=== PATIENT | female | born 1940 | race Caucasian/White ===

== ENCOUNTER 2016-09-25 21:45 | Inpatient (IN) | payer OTHER ==
[2016-09-25] MEDS ORDERED: SOLU-MEDROL ONE (21:48)
[2016-09-25] MEDS ORDERED: AMIDATE ONE (21:48)
[2016-09-25] MEDS ORDERED: QUELICIN ONE (21:48)
[2016-09-25] MEDS ORDERED: MAGNESIUM SULFATE 1 GM/D5W 100 ML IV ONE (21:52)
[2016-09-25] MEDS ORDERED: NITROGLYCERIN TOP ONE (21:54)
[2016-09-25] MEDS ORDERED: DUONEB (A & A) INH ONE (21:54)
[2016-09-25] MEDS ORDERED: LASIX IV ONE (21:56)
[2016-09-25 21:57] LABS: ALLEN TEST YES; BE -3.6 mmoll (-3.0-3.0); BLOOD TYPE ARTERIAL; DRAW SITE L RADIAL; O2(CT) 15.9 mL/dL (15.0-23.0); PO2(98.6) 93 mmHg (60-100); SAMPLE BLOOD; SAO2 96.9 % (95.0-100.0); SRATE 20 BPM; THB 12.9 g/dL (11.5-17.4)
--- NOTE | 2016-09-25 21:58 | PROVIDER DOCUMENTATION ---
HPI-Respiratory General - General Chief Complaint: Shortness of Breath Stated Complaint: RESP DISTRESS Time Seen by Provider: 09/25/16 21:51 Source: EMS Allergies/Adverse Reactions: Patient Allergies Allergy/AdvReac Type Severity Reaction Status Date / Time No Known Allergies Allergy Verified 09/25/16 22:56 Home Medications: Albuterol Sulfate Inhaler [Ventolin Hfa] 2 puff INH Q4H PRN PRN 05/18/16 Aspirin 81 tab PO DAILY 05/18/16 Atorvastatin Calcium [Lipitor] 40 mg PO DAILY 05/18/16 Fluticasone/Salmeterol [Advair 500-50 Diskus] 1 puff INH BID 05/18/16 Gabapentin 400 mg PO TID 05/18/16 Isosorbide Mononitrate [Isosorbide Mononitrate ER] 15 mg PO DAILY 05/18/16 Lisinopril 5 mg PO DAILY 05/18/16 Ropinirole HCl [Requip] 3 mg PO QHS 05/18/16 Temazepam 15 mg PO QHS 05/18/16 - History of Present Illness-Resp Nature of Presenting Problem: 75 y/o f presents to the ed with respiratory failure. pt was brought in by ems. per ems when they arrived at the pts residence she was taking an albuterol treatment. pt was in respiratory distress. upon arrival pt was struggling to breath and had extreme hypertension. pt has ill appearance. Quality of Pain: reports: tightness Severity in ED: reports: moderate Onset/Duration: reports: 1-3 hours ago Timing: reports: still present Cough Quality/Degree: reports: no cough Current Respiratory Medication Therapy: Initiated albuterol/atrovent inhale Modifying Factors: improves with: albuterol nebulizer Similar Symptoms Previously?: No Recently seen or treated by another doctor?: No Review of Systems - Adult - REVIEW OF SYSTEMS - ADULT ROS:: unobtainable per condition Constitutional: reports: no symptoms reported Eyes: reports: no symptoms reported Ears, Nose, Mouth & Throat: reports: no symptoms reported Cardiovascular: reports: no symptoms reported Respiratory: reports: no symptoms reported Gastrointestinal: reports: no symptoms reported Genitourinary: reports: no symptoms reported Musculoskeletal: reports: no symptoms reported Integumentary: reports: no symptoms reported Neurological: reports: no symptoms reported Psychiatric: reports: no symptoms reported Endocrine: reports: no symptoms reported Hematologic/Lymphatic: reports: no symptoms reported Allergic/Immunologic: reports: no symptoms reported All Other Systems: Reviewed and Negative Past History - Adult - PAST MEDICAL HISTORY-ADULT Review of Records: reports: Old Records Reviewed, Nursing Assessment Review, Medications Reviewed Cardiovascular: reports: pacemaker Respiratory: reports: COPD Musculoskeletal: reports: arthritis - PRIOR SURGERIES/PROCEDURES Surgical/Procedure History: reports: reviewed, not pertinent - IMMUNIZATION STATUS Childhood Immunizations: See Nurse Assessment Flu Vaccine: See Nurse Assessment - FAMILY HISTORY Family History: reviewed, not pertinent - SOCIAL HISTORY Smoking: cigarettes, less than 1 pack/day Provider spent 3-5 mins advising pt. on dangers of tobacco.: Discussed manners to quit use, and f/u contacts for add'l counseling. Physical Exam-General - PHYSICAL EXAM-ADULT Initial Vital Signs Reviewed: Yes - CONSTITUTIONAL General Appearance: severe distress - EYES Eyes: PERRL/EOMI, pink conjunctivae, fundi clear, no AV nicking - HEAD, EARS, NOSE, MOUTH & THROAT HENMT: normocephalic/atraumatic, moist mucous membranes, normal ENT inspection - RESPIRATORY Respiratory: chest non-tender, respiratory distress, accessory muscle use, wheezing - CARDIOVASCULAR Cardiovascular: normal peripheral pulses, regular rate, rhythm - GASTROINTESTINAL (ABDOMEN) Abdominal Exam: normal bowel sounds, non tender, soft - LYMPHATIC Lymphatic: no adenopathy - MUSCULOSKELETAL Back Exam: normal inspection - SKIN Integumentary: normal color, normal turgor, warm/dry - PSYCHIATRIC Psych/Mental Status: disheveled Progress - PLAN OF CARE/RESULTS Progress/Plan/Lab Results: Dr. Ricks discussed intubation with pt daughter and initially the daughter did not want to intubate but changed her mind. plan of care: labs, imaging,admit as inpatient Laboratory Tests 09/25/16 09/25/16 09/25/16 21:50 21:50 21:50 WBC 13.98 H RBC 3.93 L Hgb 12.5 Hct 38.7 MCV 98.5 MCH 31.8 H MCHC 32.3 L RDW Std Deviation 14.0 Plt Count 263 MPV 10.9 H Neut % (Auto) 52.9 Lymph % (Auto) 37.7 Ida % (Auto) 5.8 Eos % (Auto) 3.4 Baso % (Auto) 0.2 Neut # (Auto) 7.40 H Lymph # (Auto) 5.27 H Ida # (Auto) 0.81 H Eos # (Auto) 0.47 Baso # (Auto) 0.03 PT INR PTT (Actin FS) Specimen Type ARTERIAL Sample Site L RADIAL pH 7.05 L* pCO2 107 H* pO2 93 HCO3 21.9 Base Excess -3.6 L Oxyhemoglobin 87.2 L* ABG O2 Sat (Calculated) 15.9 ABG O2 Saturation 96.9 ABG Carboxyhemoglobin 9.00 H* ABG Methemoglobin 1.0 Robert Test YES A-a O2 Difference 486.0 Total Hemoglobin 12.9 Lactate 2.20 Blood Gas Modality BI PAP Spontaneous Rate 20 FiO2 % 100.0 Inspiratory BiPAP 12.0 Expiratory BiPAP 5.0 Sodium 134 L Potassium 4.4 Chloride 93 L Carbon Dioxide 27 Anion Gap 14 BUN 22 Creatinine 1.5 H Estimated GFR/1.73 m2 34 BUN/Creatinine Ratio 15 Glucose 196 H Calculated Osmolality 277 Calcium 9.1 Total Bilirubin 0.21 AST 87 H ALT 72 H Alkaline Phosphatase 158 H Creatine Kinase 207 H Creatine Kinase Index 2.9 H CK-MB (CK-2) 6.02 H Troponin T [id number]-K-Onpxgufxqvq Pept Total Protein 7.0 Albumin 4.2 Globulin 2.8 Albumin/Globulin Ratio 1.5 09/25/16 09/25/16 09/25/16 21:50 21:50 21:50 WBC RBC Hgb Hct MCV MCH MCHC RDW Std Deviation Plt Count MPV Neut % (Auto) Lymph % (Auto) Ida % (Auto) Eos % (Auto) Baso % (Auto) Neut # (Auto) Lymph # (Auto) Ida # (Auto) Eos # (Auto) Baso # (Auto) PT 9.3 INR 0.88 PTT (Actin FS) 20.1 L Specimen Type Sample Site pH pCO2 pO2 HCO3 Base Excess Oxyhemoglobin ABG O2 Sat (Calculated) ABG O2 Saturation ABG Carboxyhemoglobin ABG Methemoglobin Robert Test A-a O2 Difference Total Hemoglobin Lactate Blood Gas Modality Spontaneous Rate FiO2 % Inspiratory BiPAP Expiratory BiPAP Sodium Potassium Chloride Carbon Dioxide Anion Gap BUN Creatinine Estimated GFR/1.73 m2 BUN/Creatinine Ratio Glucose Calculated Osmolality Calcium Total Bilirubin AST ALT Alkaline Phosphatase Creatine Kinase Creatine Kinase Index CK-MB (CK-2) Troponin T 0.754 H* Wcj-X-Chxrbexdyqa Pept 6199 H Total Protein Albumin Globulin Albumin/Globulin Ratio 09/25/16 23:00 WBC RBC Hgb Hct MCV MCH MCHC RDW Std Deviation Plt Count MPV Neut % (Auto) Lymph % (Auto) Ida % (Auto) Eos % (Auto) Baso % (Auto) Neut # (Auto) Lymph # (Auto) Ida # (Auto) Eos # (Auto) Baso # (Auto) PT INR PTT (Actin FS) Specimen Type ARTERIAL Sample Site R BRACHIAL pH 7.28 L pCO2 60 H* pO2 214 H HCO3 25.0 Base Excess 0.3 Oxyhemoglobin 91.7 L ABG O2 Sat (Calculated) 16.2 ABG O2 Saturation 99.5 ABG Carboxyhemoglobin 6.20 H* ABG Methemoglobin 1.6 H Robert Test YES A-a O2 Difference 424.0 Total Hemoglobin 12.2 Lactate 0.50 Blood Gas Modality BI PAP Spontaneous Rate 20 FiO2 % 100.0 Inspiratory BiPAP 18.0 Expiratory BiPAP 6.0 Sodium Potassium Chloride Carbon Dioxide Anion Gap BUN Creatinine Estimated GFR/1.73 m2 BUN/Creatinine Ratio Glucose Calculated Osmolality Calcium Total Bilirubin AST ALT Alkaline Phosphatase Creatine Kinase Creatine Kinase Index CK-MB (CK-2) Troponin T Apk-A-Weubasimhuq Pept Total Protein Albumin Globulin Albumin/Globulin Ratio Orders Category Date Time Status Cardiac Monitoring DIRECTED Care 09/25/16 21:53 Active FSBS/Accucheck Result NOW Care 09/25/16 21:53 Active Saline Loc NOW Care 09/25/16 21:53 Active CHEST-PORTABLE [RAD] Stat Exams 09/25/16 21:50 Taken ABG [RESP] Routine Lab 09/25/16 21:50 Completed ABG [RESP] Routine Lab 09/25/16 23:00 Completed CBC WITH ELECTRONIC DIFF [HEME] Stat Lab 09/25/16 21:50 Completed CK PROFILE [SP CHEM] Stat Lab 09/25/16 21:50 Completed COMPREHENSIVE METABOLIC PANEL [CHEM] Stat Lab 09/25/16 21:50 Completed PRO B-NATRIURETIC PEPTIDE Stat Lab 09/25/16 21:50 Completed PROTIME WITH INR [COAG] Stat Lab 09/25/16 21:50 Completed PTT [COAG] Stat Lab 09/25/16 21:50 Completed TROPONIN T Stat Lab 09/25/16 21:50 Completed Albuterol 2.5MG/Ipratrop 0.5MG [Duoneb (A & A)] Med 09/25/16 21:54 Discontinued 3 ml INH NOW ONE Etomidate [Amidate] Med 09/25/16 21:48 Discontinued 40 mg .ROUTE .STK-MED ONE Furosemide [Lasix] Med 09/25/16 21:56 Discontinued 60 mg IV NOW ONE Magnesium Sulfate 1 gm/D5w 100 ml Med 09/25/16 21:52 Discontinued IV NOW Methylprednisolone Sod Succ [Solu-Medrol] Med 09/25/16 21:48 Discontinued 125 mg .ROUTE .STK-MED ONE Methylprednisolone Sod Succ [Solu-Medrol] Med 09/25/16 22:30 Discontinued 125 mg IV NOW ONE Nitroglycerin Med 09/25/16 21:54 Discontinued 0.5 inch TOP NOW ONE Succinylcholine [Quelicin] Med 09/25/16 21:48 Discontinued 200 mg .ROUTE .STK-MED ONE Aerosol Treatments Routine Oth 09/25/16 21:54 Active Aerosol Treatments Stat Oth 09/25/16 21:54 Active EKG [EKG] Stat Ther 09/25/16 21:46 Ordered Vital Signs - 24 hr 09/25/16 09/25/16 21:45 22:05 Pulse Rate 105 H 112 H Respiratory 24 18 Rate Blood Pressure 234/139 220/155 O2 Sat by Pulse 89 L 92 L Oximetry - EKG 1 Time of EKG reading by physician:: 21:58 EKG Read and Signed by:: Gregory Ricks Rate: 115 Rhythm: sinus tach 2 Time of EKG reading by physician:: 21:58 EKG Read and Signed by:: Gregory Ricks Rate: 116 Rhythm: sinus tach - XRAY 1 XRAY Study: Chest XRAY Interpretation: CHF/can not rule out pneumonia/significate changes from previous - CONSULTS/PCP/HOSPITALIST Notification #1 *Consult/PCP/Hospitalist*: Dr. Mathew Time Discussed: 23:10 Consult Disposition: Admit Departure - Departure Time of Disposition Order: 23:12 DIAGNOSIS: COPD exacerbation CHF (congestive heart failure) Qualifiers: Congestive heart failure type: unspecified congestive heart failure type Congestive heart failure chronicity: unspecified congestive heart failure chronicity Qualified Code(s): I50.9 - Heart failure, unspecified Disposition: ADMITTED INPATIENT 09 Certified Medical Emergency: Emergent Condition: Stable Additional Instructions: ED Follow Up Instructions: You have been treated by a care provider in the Emergency Department. These instructions are being provided to you so you can have an understanding of how to care for yourself upon discharge. Upon discharge from the Emergency Department, you are responsible for making arrangements for follow-up care by a physician of your choice. Take all prescribed medications as directed. Return to the Emergency Department immediately for any new or worsening symptoms. You may call the Physician Referral phone number at [phone] to obtain a list of Physicians who are taking new patients. Referrals: Rebecca Ham MD [Primary Care Provider] -
[2016-09-25 22:01] LABS: PCO2(98.6) 107 mmHg (35-45); pH(98.6) 7.05 (7.35-7.45)
[2016-09-25 22:02] LABS: MODALITY BI PAP
[2016-09-25 22:22] LABS: BASO% 0.2 % (0.0-0.8); EOS# 0.47 X1000 (0.0-0.7); EOS% 3.4 % (0.0-10.0); HEMATOCRIT 38.7 % (37.0-47.0); HEMOGLOBIN 12.5 g/dL (12.0-16.0); LYMPH# 5.27 X1000 (1.2-3.4); LYMPH% 37.7 % (20.5-51.1); MANUAL DIFF NEEDED? NO; MCH 31.8 PG (27-31); MCHC 32.3 g/dL (33-37); MCV 98.5 FL (81-99); MONO# 0.81 X1000 (0.11-0.59); MONO% 5.8 % (1.7-9.3); MPV 10.9 FL (7.4-10.4); NEUT% 52.9 % (42.2-75.2); PLT 263 X1000 (130-400); RBC 3.93 XMIL (4.2-5.4)
[2016-09-25] MEDS ORDERED: SOLU-MEDROL IV ONE (22:30)
[2016-09-25 22:33] LABS: INR 0.88; PROTIME 9.3 Seconds (9.2-11.7); PTT 20.1 Seconds (22.0-36.0)
[2016-09-25 22:40] LABS: ALBUMIN 4.2 g/dL (3.5-5.0); CALCIUM 9.1 mg/dL (8.8-10.2); POTASSIUM 4.4 mmol/L (3.5-5.1); TOTAL BILIRUBIN 0.21 mg/dL (0.20-1.00)
[2016-09-25 23:02] LABS: CK INDEX 2.9 (0.0-2.5); CK-MB 6.02 ng/mL (0.0-5.0)
[2016-09-25 23:07] LABS: ALLEN TEST YES; BE 0.3 mmoll (-3.0-3.0); BLOOD TYPE ARTERIAL; DRAW SITE R BRACHIAL; METHB 1.6 % (0.0-1.5); O2(CT) 16.2 mL/dL (15.0-23.0); PO2(98.6) 214 mmHg (60-100); SAMPLE BLOOD; SAO2 99.5 % (95.0-100.0); SRATE 20 BPM; THB 12.2 g/dL (11.5-17.4); pH(98.6) 7.28 (7.35-7.45)
[2016-09-25 23:09] LABS: MODALITY BI PAP
[2016-09-25 23:10] LABS: PCO2(98.6) 60 mmHg (35-45)
[2016-09-25] MEDS ORDERED: ROCEPHIN 1 GM/NS 50 ML IV STA (23:11)
[2016-09-26] LABS: URINE CULTURE NEEDED? NO; URINE MICRO REVIEW NEEDED? NO; URINE SOURCE CATH
[2016-09-26] MEDS: NORCO-7.5 PO PRN ×3 (00:30→20:21)
[2016-09-26 00:39] LABS: BILIRUBIN URINE NEGATIVE (NEGATIVE); BLOOD URINE NEGATIVE (NEGATIVE); COLOR STRAW; GLUCOSE URINE NEGATIVE (NEGATIVE); LEUKOCYTES URINE NEGATIVE (NEGATIVE); NITRITE URINE NEGATIVE (NEGATIVE); PH URINE 6.5; PROTEIN URINE 50 mg/dL (NEGATIVE); SP GRAVITY URINE 1.006; TURBIDITY URINE CLEAR (CLEAR); UROBILINOGEN URINE NORMAL (NORMAL)
[2016-09-26 00:40] LABS: UR EPITHELIAL CELLS <10 /HPF (<10); URINE BACTERIA NEGATIVE /HPF; URINE RBC <10 /HPF (<10); URINE WBC <10 /HPF (<10)
[2016-09-26] MEDS ORDERED: ZOFRAN IV PRN (00:58)
[2016-09-26] MEDS ORDERED: LOVENOX SUBQ ONE (00:58)
[2016-09-26] MEDS ORDERED: TYLENOL PO PRN (00:58)
[2016-09-26 01:17] LABS: ALLEN TEST YES; BE -0.2 mmoll (-3.0-3.0); BLOOD TYPE ARTERIAL; DRAW SITE R BRACHIAL; METHB 1.4 % (0.0-1.5); O2(CT) 15.1 mL/dL (15.0-23.0); PO2(98.6) 100 mmHg (60-100); SAMPLE BLOOD; SAO2 98.8 % (95.0-100.0); SRATE 20 BPM; THB 11.4 g/dL (11.5-17.4); pH(98.6) 7.31 (7.35-7.45)
[2016-09-26 01:18] LABS: MODALITY BI PAP
[2016-09-26 01:20] LABS: PCO2(98.6) 53 mmHg (35-45)
[2016-09-26] MEDS: COREG PO SCH ×2 (01:45→09:26)
[2016-09-26] MEDS: LEVAQUIN 500 MG/D5W 100 ML IV SCH (01:45)
[2016-09-26] MEDS: NITROGLYCERIN TOP SCH ×4 (01:45→18:24)
[2016-09-26 01:58] LABS: HEMOGLOBIN A1C 5.4 % (4.8-6.0)
--- NOTE | 2016-09-26 02:04 | HISTORY AND PHYSICAL ---
PRIMARY CARE PHYSICIAN: Rebecca Ham MD REASON FOR ADMISSION: A 2-week history of progressive shortness of breath. HISTORY OF PRESENT ILLNESS: Ms. Mary Jane Morales is a 75-year-old lady with past medical history of diastolic heart failure, COPD, peripheral arterial disease with severe bilateral lower extremity disease, and AAA with 3 cm. She also has hypertension and dyslipidemia. Also, has sleep apnea and restless legs syndrome. The patient reports that she was having progressive 2 to 3-week history of progressive shortness of breath with mild exertion. Denies any orthopnea or PND. However, today the patient says she became acutely short of breath and her daughter noticed that when she came in from work that the patient was struggling to breathe. The patient tried 2 nebulizer treatment without any success and called for EMS. By the time EMS got there, her O2 saturations were between 60% and 70%, and she was placed on a BiPAP machine. On arrival to the ER, the patient was given Lasix, steroids, antibiotics, and her BiPAP settings were modified. Her pCO2 on initial blood gas was reportedly in the 120s to 130s. The patient was ashen alex and barely responsive. At that time, the discussion of whether to intubate was pretty much up in the air and the family elected to proceed with intubation if she continued to deteriorate. The patient currently is more awake after being 30 minutes on the BiPAP. Her blood gas shows that her pH of 7.28, pCO2 is down to 60, pO2 is 201.4 on a BiPAP setting of 18 and 6 IPAP and EPAP respectively. Her weight is 20, FiO2 is 100%. She is able to answer my questions and admits that she had no dietary indiscretion over the holiday and used a lot of [id number] sleep aids. Denies any NSAID use. No antecedent leg swelling. REVIEW OF SYSTEMS: Only notable for constipation and chronic dyspnea, which is related to her COPD. ALLERGIES: Patient has no known allergies. HOME MEDICATIONS: Include Ventolin inhaler 2 puffs q.4 h. p.r.n., aspirin 81 mg daily, Atorvastatin 40 mg daily, Advair 250/50 one puff b.i.d., gabapentin 400 mg t.i.d., Imdur 15 mg daily, lisinopril 5 mg daily, Requip 3 mg at bedtime, Restoril 50 mg at bedtime. Takes Benadryl Allergy relief. She takes Fosamax 70 mg every week, Lasix 40 mg daily (this was started recently, on 09/12/2016, when she appeared in the ER for shortness of breath). 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 SOCIAL HISTORY: She smokes 1/2 to 1 pack a day. No alcohol or drug use. Lives with her daughter. FAMILY HISTORY: Notable for type 2 diabetes and mesothelioma in first-degree relatives. LABORATORY WORK: EKG shows sinus tachycardia. Chest x-ray shows COPD with chronic interstitial changes and possible superimposed increased vascular markings. White count 14,000, hemoglobin and hematocrit 12 and 38, platelets 263,000, with normal differential. Sodium 134, BUN 22, creatinine 1.5, glucose 196, AST 87, ALT 72, alkaline phosphatase 158, CK 207, with index of 2.9. Troponin 0.754. ProBNP 6000. PT, PTT is normal. EXAMINATION: General: A frail, chronically ill, elderly woman, who is on a BiPAP machine. She is slightly drowsy but opens her eyes to her name and she is oriented to person, place, and time. Vital signs: Temperature is 98, respiration is 16, heart rate 103, blood pressure 147/70. HEENT: Head is normocephalic, atraumatic. Eyes: PERRL, EOMI. She is anicteric, not pale. Did not do detailed ENT exam, but visually through the BiPAP mask, she has no evidence of central cyanosis. Neck: Supple. Positive JVD noted. No bruit, no thyromegaly. Chest: Significant decreased air entry with barrel-shaped chest and scattered wheezes. No crepitations. Cardiovascular: First and second heart sounds heard. No gallops, murmurs, or rubs. Rhythm is regular. Abdomen: Scaphoid soft, nontender. No mass or organomegaly. Bowel sounds are hypoactive. Rectal: Deferred at this time. Extremities: No edema, clubbing or cyanosis. Neuro: No focal deficits appreciated. Skin: She has occasional bruises on her lower extremities and upper extremities, but otherwise nil of note. Musculoskeletal: Grossly normal. ASSESSMENT: 1. Acute respiratory failure secondary to chronic obstructive pulmonary disease/congestive heart failure exacerbation. 2. Acute diastolic heart failure. 3. Chronic obstructive pulmonary disease exacerbation. 4. Peripheral arterial disease. 5. Non-ST wave myocardial infarction. 6. Peripheral arterial disease. 7. Abdominal aortic aneurysm. 8. Tobacco use. 9. Restless leg syndrome. 10. Coronary artery disease. 11. Chronic kidney disease stage 3. PLAN: At this time, continue with BiPAP support, nebulizer support, O2 support. Lasix will be continued with nebulizer treatments. Also, put nitroglycerin paste to decrease venous return. Hold off on steroids at this point in time, because of the potential for salt water retention, but once diuresis is achieved in the next 24 hours this can be restarted. This may be restarted at the discretion of the attending. Smoking cessation was reiterated. Patient plans to quit. Get ABG in the morning to document and adjust BiPAP settings accordingly. Will consult Cardiology for NSTEMI, which I believe is secondary to hypoxemia from the COPD and acute diastolic heart failure. Start patient on full-dose aspirin and Lovenox. The patient will also be started on low-dose beta blockers, if not initiated. Also continue patient on statins. Check LDL in the morning. The patient has some degree of hyperglycemia and will check A1c to rule out the possibility of diabetes.
[2016-09-26 02:15] LABS: HDL 150 mg/dL (45-65); LDL 89 mg/dL; TRIGLYCERIDES 93 mg/dL (35-135); VLDL 19 mg/dL
[2016-09-26] MEDS: LASIX IV SCH ×2 (02:44→16:24)
[2016-09-26] MEDS: DUONEB (A & A) INH SCH ×6 (03:30→23:08)
--- NOTE | 2016-09-26 05:26 | EKG Report ---
Test Performed on : 09/25/2016 9:49:58 PM Test Reason : CP Blood Pressure : / mmHG Vent. Rate : 115 BPM Atrial Rate : 115 BPM P-R Int : 136 ms QRS Dur : 076 ms QT Int : 338 ms P-R-T Axes : 071 045 104 degrees QTc Int : 467 ms Sinus tachycardia. Possible Left atrial enlargement Left ventricular hypertrophy with repolarization abnormality Cannot rule out Septal infarct (cited on or before 12-SEP-2016) Abnormal ECG When compared with ECG of 12-SEP-2016 05:18, premature atrial complexes. are no longer present T wave inversion now evident in Lateral leads Unconfirmed Result
[2016-09-26 06:02] LABS: CALCIUM 8.3 mg/dL (8.8-10.2); MAGNESIUM 2.3 mg/dL (1.5-2.7); POTASSIUM 4.1 mmol/L (3.5-5.1)
[2016-09-26 06:46] LABS: HEMOGLOBIN 10.5 g/dL (12.0-16.0); LYMPH# 0.36 X1000 (1.2-3.4); LYMPH% 4.3 % (20.5-51.1); MANUAL DIFF NEEDED? YES; MCHC 32.8 g/dL (33-37); MCV 97.6 FL (81-99); MONO% 1.2 % (1.7-9.3); NEUT% 94.5 % (42.2-75.2); PLT 159 X1000 (130-400); RBC 3.28 XMIL (4.2-5.4)
[2016-09-26 07:13] LABS: LYMPHS 6 % (21-51)
--- NOTE | 2016-09-26 07:52 | Diag Imaging Result Document ---
PROCEDURE NAME: CHEST-PORTABLE - 09/26/2016 AP PORTABLE CHEST ERECT: TIME: 0600 hours. FINDINGS: There is improvement in the interstitial opacity seen in the lung bases on the previous study of 09/25/2016. IMPRESSION: Improving pulmonary edema.
--- NOTE | 2016-09-26 08:04 | Diag Imaging Result Document ---
PROCEDURE NAME: CHEST-PORTABLE - 09/25/2016 AP PORTABLE CHEST: TIME: 2200 hours. FINDINGS: There is worsened alveolar and interstitial opacity over both lung bases. There is blunting of the costophrenic angle on the right and the left is obscured and not included on this study. IMPRESSION: Pulmonary edema.
[2016-09-26] MEDS ORDERED: PRINIVIL PO SCH (09:00)
[2016-09-26] MEDS: ASPIRIN EC PO SCH (09:26)
[2016-09-26] MEDS: LIPITOR PO SCH (09:26)
--- NOTE | 2016-09-26 11:10 | CONSULTATION ---
DATE OF CONSULTATION: 09/26/2016 REASON FOR CONSULTATION: Cardiology was consulted for pulmonary edema, non-Q-wave myocardial infarction, abnormal cardiac enzymes. HISTORY OF PRESENT ILLNESS: Ms. Morales is a 75-year-old, lady with history of diastolic heart failure, severe COPD, peripheral vascular disease, bilateral femoral-popliteal in the past with AAA measuring 3 cm, hypertension, chronic smoker, restless leg syndrome, comes with complaints of increasing shortness of breath for the last 2-3 weeks which initially she thought was because of her COPD. She took her inhalers, nebulizers and this did not help. She became more orthopneic. Came to the emergency room and was admitted. Chest x-ray revealed pulmonary edema. Patient was given IV Lasix and admitted. She denies chest pain suggestive of angina. There is no palpitations or syncope. Patient was on BiPAP as well. The pH on admission was 7.28, pCO2 60, PO2 201 on oxygen and FiO2 of 100%. REVIEW OF SYSTEMS: General: Fourteen point review of system was done. GI: There is no history of nausea, vomiting, or diarrhea. There is no history of hematemesis or melena. Central nervous system: No focal weakness to suggest a CVA or TIA. Respiratory System: There is no history of fevers, cough or hemoptysis. PAST MEDICAL HISTORY: 1. Last cardiac catheterization 2006: LAD 20%-30%. RCA 20%-30%. Mid 40% disease. 2. Sick sinus syndrome status post [employer] pacemaker. 3. Cardiolite stress test 2015 with no ischemia. 4. Hypertension, hyperlipidemia: COPD. 5. Obstructive sleep apnea. 6. Peripheral vascular disease, severe aortoiliac atherosclerotic disease with involvement of several of the major aortic branches. 7. Patient has had femoral-popliteal bypass in the past. 8. Bladder tumor resection for transitional cell carcinoma. 9. Partial colectomy in the past. 10. She smokes 1/2 to 1 pack of cigarettes a day. There is no history of alcohol abuse. HOME MEDICATIONS: 1. Ventolin inhaler 2 puffs p.r.n. 2. Enteric-coated aspirin 81 mg a day. 3. Atorvastatin 40. 4. Coreg 3.125. 5. Lisinopril 5. 6. Requip. 7. Restoril. 8. Lasix 40 mg a day. 9. Fosamax. SOCIAL HISTORY: There is no history of alcohol abuse. PHYSICAL EXAMINATION: Vital Signs: Blood pressure was 140/70. Cardiovascular System: Normal jugular venous pressure. There is no thyromegaly. No carotid bruit. First and second heart sounds were heard. Respiratory System: Examination revealed bilateral inspiratory crepitations. Abdomen: Soft, nontender. There was no guarding or rigidity. Bowel sounds were heard. Central nervous system: Alert and oriented, was moving all 4 extremities. Extremities: Examination of extremities revealed no pedal edema. HEENT: Atraumatic, normocephalic. Pupils were equal and reacting to light. LABORATORY EXAMINATION: Revealed sodium 132, potassium 4.1, BUN 24, creatinine 1.4. Troponin 0.754 and 0.603. Electrocardiogram revealed normal sinus rhythm, nonspecific ST-T changes with artifact also noted. There was some ST depression noted in the lateral leads. ASSESSMENT AND PLAN: Ms Mary Jane Morales is a 75-year-old, lady with history of minimal coronary artery disease in the past, hypertension, chronic smoker, severe peripheral vascular disease, status post femoral-popliteal bypass in the past, comes with complaints of increasing shortness of breath for the last 2-3 weeks. Chest x-ray revealed pulmonary edema. She was started on Lasix and has abnormal cardiac enzymes. 1. She has a non-Q-wave myocardial infarction with pulmonary edema. We will make the following changes to her medications: We will change from Coreg to Toprol given her severe chronic obstructive pulmonary disease. We will put her on Toprol-XL 50 mg a day. In addition, increase the lisinopril to 10 mg a day. Since her admission, she has improved. We will continue with Lasix at 40 mg intravenous twice daily. 2. Once she is euvolemic, we will plan for invasive coronary angiography as well given her non-Q- wave myocardial infarction and pulmonary edema. She has diastolic heart failure based on ejection fraction in the past. We will get an echocardiogram to reassess cardiac and valvular function today. 3. Next, she has severe chronic obstructive pulmonary chronic obstructive pulmonary disease. Continues to smoke and she is on inhalers. I have not made any changes to her medication. 4. We will check her x-ray in the morning. Chest and an electrocardiogram. Will get another set of serial cardiac enzymes. She is on aspirin. I have not made any changes to her medications. Thank you for the consult. We will follow her hospital course.
[2016-09-26] MEDS: ADVAIR 500/50 DISKUS INH SCH ×2 (11:24→19:42)
[2016-09-26] MEDS: TOPROL XL PO SCH (11:41)
--- NOTE | 2016-09-26 15:03 | PROGRESS NOTE ---
DATE: 09/26/2016 SUBJECTIVE: This patient states that she is feeling much better. She is at this moment, not complaining of shortness of breath. She is tolerating p.o. She is not having chest pain. She denies nausea, vomiting, diarrhea or constipation. OBJECTIVE: Vital Signs: Temperature 97.8, pulse 77, respiratory rate 18, blood pressure 149/70, oxygen saturation 96 on 5 L of nasal cannula. HEENT: Head normocephalic. No trauma. PERRLA. Neck: Supple. Mild JVD, no masses. Central trachea. Chest: Decreased air entry globally, barrel chest, scattered wheezing. No crepitation. Cardiovascular: RRR. No murmurs. No gallops. No rubs. Abdomen: Soft, nontender, nondistended. No hepatosplenomegaly. Extremities: No edema. No clubbing. No cyanosis. Neurological: The patient is alert. She is oriented x3. No focal motor or neurological deficits. LABORATORY: WBC 8.4, hemoglobin 10.5, hematocrit 32 platelets 159. Sodium 132, potassium 4.1, chloride 94, bicarbonate 24, chloride 94, bicarbonate 24, BUN 24, creatinine 1.4, glucose 121, calcium 8.3. Troponin 0.6. ASSESSMENT AND PLAN: 1. Acute respiratory failure secondary of chronic obstructive pulmonary disease exacerbation. Continue with breathing treatment, oxygen. We will continue to monitor. This patient is improving. 2. Congestive heart failure exacerbation, likely diastolic, Cardiology is on board. We will continue with diuresis. Cardiology adjusted medication. They will initiate Toprol and they increased the dose of the LOC inhibitors. 3. Non ST elevation myocardial infarction. For now, we will keep this patient on aspirin. She is not complaining of chest pain. Once she is getting better, probably the Cardiology department will do a left heart catheterization. Will monitor for now. 4. Peripheral arterial disease. Continue monitoring and treatment. 5. Abdominal aortic aneurysm. Continue monitoring. No abdominal pain at this moment. 6. Restless leg syndrome, to monitor. 7. History of coronary artery disease. The troponins are elevated. Cardiology is on board. We will continue monitoring the troponins and also we will continue with the same management for now. 8. Chronic kidney disease stage 3. It looks like this is her baseline. We will continue treatment and monitoring. 9. Tobacco abuse. This patient has been highly advised against tobacco abuse.
--- NOTE | 2016-09-26 15:35 | ECHO REPORT ---
ORDER DATE: 09/26/2016 INTERPRETING PHYSICIAN: Dr. Howard Esparza ECHOCARDIOGRAPHIC MEASUREMENTS: Interventricular septum: 1.2 cm. Left ventricular posterior wall: 1.2 cm. Diastolic diameter: 5.0 cm. Left atrium: 4.6 cm. Aortic root: 2.9 cm. SUMMARY OF THE 2-DIMENSIONAL IMAGIN. Aortic valve leaflets are trileaflet, sclerosed, opening normally. 2. Pulmonic valve was normal. 3. There is mild pulmonary regurgitation. 4. Mitral valve was normal. Tricuspid valve was normal. 5. By Doppler studies there is no aortic stenosis or regurgitation. Pacing leads are noted in the right chamber. 6. Normal left ventricular cavity size. Concentric left ventricular hypertrophy. Estimated ejection fraction of 45%. There is mild to moderate tricuspid regurgitation. Peak velocity across the tricuspid valve was 3.2 m/sec. Pulmonary artery systolic pressure of 51 mmHg. 7. There is left atrial enlargement. 8. There is severe mitral regurgitation. CONCLUSIONS: 1. Normal left ventricular cavity size. Concentric left ventricular hypertrophy. Estimated ejection fraction of 45%. 2. There is severe mitral regurgitation. 3. There is moderate tricuspid regurgitation. 4. There is pulmonary arterial hypertension. 5. There is no pericardial effusion or obvious intracardiac mass or thrombus.
[2016-09-26] MEDS ORDERED: MORPHINE ONE (16:16)
--- NOTE | 2016-09-26 16:39 | EKG Report ---
Test Performed on : 09/26/2016 4:25:43 PM Test Reason : SOB Blood Pressure : / mmHG Vent. Rate : 093 BPM Atrial Rate : 093 BPM P-R Int : 150 ms QRS Dur : 084 ms QT Int : 378 ms P-R-T Axes : 081 073 070 degrees QTc Int : 469 ms Normal sinus rhythm. Right atrial enlargement Left ventricular hypertrophy with repolarization abnormality Cannot rule out Anteroseptal infarct (cited on or before 12-SEP-2016) Abnormal ECG When compared with ECG of 26-SEP-2016 16:24, (Unconfirmed) T wave amplitude has increased in V1- V2 Persistant on specific ST change in the far-lateral leads V4-V5-V6 Confirmed by Angel Belle DO ([id number]) on 09/28/2016 4:19:06 PM
--- NOTE | 2016-09-26 20:10 | CONSULTATION ---
DATE OF CONSULTATION: 09/26/2016 REASON FOR CONSULTATION: Respiratory failure. HISTORY OF PRESENT ILLNESS: Ms. Morales is a 75-year-old, white female with COPD, ongoing tobacco use, who developed sudden onset shortness of breath last evening. By nursing report, patient presented to the emergency room and intubation was considered but she had marginal improvement. Chest x-ray on presentation was consistent with pulmonary edema. Her cardiac enzymes reveal a positive troponin set along with a positive CPK index. The patient has been diagnosed with a non- Q-wave CO. The patient reportedly was doing well today but this evening just prior to my arrival into the room the nurses were notified the patient had acute distress. Upon arrival, patient was diaphoretic with an oxygen saturation in the low 80s despite supplemental oxygen. BiPAP was placed on the patient and she received morphine. She is currently being transferred to the ICU. PAST MEDICAL HISTORY: 1. COPD with ongoing tobacco use. 2. Peripheral vascular disease status post fem-pop bypass. 3. Status post pacemaker placement. 4. History of transitional cell carcinoma of the bladder. 5. Coronary artery disease with last cardiac catheterization in 2006 revealing 40% disease in the mid circumflex, 20-30% lesion in the LAD, 20-30% lesion in the RCA. 6. Status post partial colectomy. SOCIAL HISTORY: Ongoing tobacco use as per above. FAMILY HISTORY: Noncontributory on current presentation. REVIEW OF SYSTEMS: Limited given current status. PHYSICAL EXAMINATION: Vital Signs: Reveals a thin, frail, white female, who appears in respiratory distress. Blood pressure 188/72, heart rate 73, oxygen saturation 98%. HEENT: Pupils are equal and reactive. Oropharynx is clear. Neck: Reveals diffuse wheezing bilaterally. Cardiac Examination: Distant heart sounds. Normal S1, normal S2. Abdomen: Soft and without hepatosplenomegaly. Extremities: Without edema. EKG: EKG is reviewed. There is significant artifact. She appears to have some subtle ST depression in the inferior leads along with V4 through V6. She has marginal ST change in V2. IMPRESSION: A 75-year-old with COPD and CHD with acute respiratory decompensation. Concern is that she is having ongoing cardiac ischemia. RECOMMENDATIONS: 1. Transfer to the Intensive Care Unit. 2. Continue BiPAP. 3. Morphine as needed for anxiety/pain control. 4. We will review the EKGs with Cardiology.
[2016-09-26] MEDS: NORVASC PO SCH (21:49)
[2016-09-26] MEDS: LOVENOX SUBQ SCH (21:49)
[2016-09-27] MEDS: NITROGLYCERIN TOP SCH ×4 (01:14→20:35)
[2016-09-27] MEDS: LEVAQUIN 500 MG/D5W 100 ML IV SCH (01:14)
[2016-09-27] MEDS: DUONEB (A & A) INH SCH ×6 (03:11→22:54)
[2016-09-27] MEDS: LASIX IV SCH (03:34)
[2016-09-27] MEDS: NORCO-7.5 PO PRN ×3 (04:12→13:59)
[2016-09-27 07:12] LABS: ALBUMIN 3.2 g/dL (3.5-5.0); CALCIUM 8.6 mg/dL (8.8-10.2); MAGNESIUM 2.3 mg/dL (1.5-2.7); TOTAL BILIRUBIN 0.25 mg/dL (0.20-1.00); TOTAL PROTEIN 5.8 g/dL (6.3-8.3)
[2016-09-27] MEDS: ADVAIR 500/50 DISKUS INH SCH ×2 (08:07→19:25)
[2016-09-27] MEDS: LIPITOR PO SCH ×2 (09:09→20:36)
[2016-09-27] MEDS: TOPROL XL PO SCH (09:09)
[2016-09-27] MEDS: ASPIRIN EC PO SCH (09:09)
[2016-09-27] MEDS: NORVASC PO SCH ×2 (09:09→20:36)
[2016-09-27] MEDS: PRINIVIL PO SCH (09:09)
[2016-09-27] MEDS: LOVENOX SUBQ SCH ×2 (09:10→20:36)
--- NOTE | 2016-09-27 09:30 | Diag Imaging Result Document ---
PROCEDURE NAME: CHEST-PORTABLE - 09/27/2016 SINGLE FRONTAL RADIOGRAPH OF THE CHEST: COMPARISON: 09/26/2016. FINDINGS: Infiltrates at the lower lung zones have worsened during the interval suggesting worsening edema and/or pneumonia. Cardiac silhouette is stable. IMPRESSION: Worsened infiltrates at the lower lung zones bilaterally.
[2016-09-27] MEDS ORDERED: BLISTEX MEDICATED BERRY LIP BALM TOP PRN (09:34)
[2016-09-27 10:13] LABS: CK INDEX 3.5 (0.0-2.5); CK-MB 6.37 ng/mL (0.0-5.0)
[2016-09-27] MEDS ORDERED: LIPITOR PO SCH (12:30)
[2016-09-27] MEDS ORDERED: LASIX IV SCH (12:55)
[2016-09-27] MEDS ORDERED: NEURONTIN PO SCH (13:00)
--- NOTE | 2016-09-27 13:01 | PROGRESS NOTE ---
DATE: 09/27/2016 SUBJECTIVE: The patient reports she is feeling better this morning compared to how she felt last night. She is less short of breath. She is off the BiPAP. PHYSICAL EXAMINATION: Vital Signs: She is afebrile. Heart rates in the 60s to 70s. Her most recent systolics appear to be in the 100-130s. General: She is in no acute distress. Cardiovascular: She sounds to be in a regular rate and rhythm. She has no obvious murmurs. Chest: No obvious expiatory wheezes. She has a prolonged expiratory phase with reduced breath sounds heard somewhat throughout. Abdomen: Soft, nontender, nondistended. She has no obvious organomegaly. Skin: Warm and dry throughout without any rashes. PERTINENT DATA: Her sodium is 130, potassium 4.0, BUN 32, creatinine 1.8, she was 24 and 1.4 yesterday. Her troponins were reviewed. Her LDL was 89 on presentation. ASSESSMENT: 1. Non ST-elevation myocardial infarction. 2. Respiratory failure. PLAN: We will continue her current medications. She is currently on amlodipine, aspirin, atorvastatin, furosemide which I have changed to once daily lisinopril and metoprolol. She is on treatment dose of enoxaparin. We will plan tentatively for cardiac catheterization in the morning. If the patient shows any sort of instability, we will likely escalate that to being performed over the weekend. She was on atorvastatin 40 mg daily at home. Considering her LDL and her acute issues I will increase that to 80 mg.
[2016-09-27] MEDS: NEURONTIN PO SCH (16:23)
[2016-09-27] MEDS: NICODERM PATCH TD SCH (17:04)
[2016-09-27] MEDS: REQUIP PO SCH (20:35)
[2016-09-28] MEDS: NEURONTIN PO SCH ×4 (00:40→23:11)
[2016-09-28] MEDS: NITROGLYCERIN TOP SCH ×4 (01:41→20:39)
[2016-09-28] MEDS: LEVAQUIN 500 MG/D5W 100 ML IV SCH (01:41)
[2016-09-28] MEDS: DUONEB (A & A) INH SCH ×6 (04:12→22:46)
[2016-09-28 04:59] LABS: ALLEN TEST YES; BE 6.4 mmoll (-3.0-3.0); BLOOD TYPE ARTERIAL; DRAW SITE R RADIAL; METHB 1.2 % (0.0-1.5); O2(CT) 13.1 mL/dL (15.0-23.0); PCO2(98.6) 49 mmHg (35-45); PO2(98.6) 130 mmHg (60-100); SAMPLE BLOOD; SAO2 98.4 % (95.0-100.0); THB 9.5 g/dL (11.5-17.4); pH(98.6) 7.42 (7.35-7.45)
[2016-09-28 05:00] LABS: MODALITY BI PAP
[2016-09-28 06:26] LABS: CALCIUM 8.7 mg/dL (8.8-10.2); POTASSIUM 3.8 mmol/L (3.5-5.1)
[2016-09-28 06:35] LABS: HEMATOCRIT 28.6 % (37.0-47.0); HEMOGLOBIN 9.4 g/dL (12.0-16.0); MCH 32.2 PG (27-31); MCHC 32.9 g/dL (33-37); MCV 97.9 FL (81-99); MPV 10.4 FL (7.4-10.4); RBC 2.92 XMIL (4.2-5.4)
[2016-09-28] MEDS: ADVAIR 500/50 DISKUS INH SCH ×2 (07:26→19:34)
[2016-09-28] MEDS: NORVASC PO SCH ×2 (08:37→21:44)
[2016-09-28] MEDS: ASPIRIN EC PO SCH (08:37)
[2016-09-28] MEDS: LOVENOX SUBQ SCH ×2 (08:37→21:45)
[2016-09-28] MEDS: PRINIVIL PO SCH (08:37)
[2016-09-28] MEDS: LASIX IV SCH (08:38)
[2016-09-28] MEDS: NICODERM PATCH TD SCH (08:38)
[2016-09-28] MEDS: TOPROL XL PO SCH (08:38)
[2016-09-28] MEDS ORDERED: LASIX IV SCH (09:00)
--- NOTE | 2016-09-28 10:09 | Diag Imaging Result Document ---
PROCEDURE NAME: CHEST-2 VIEWS - 09/28/2016 PA AND LATERAL RADIOGRAPH OF THE CHEST: COMPARISON: 09/27/2016. FINDINGS: Given differences in inspiration and technique, bibasilar infiltrates are approximately stable. No new consolidations are identified. Cardiac silhouette is stable. IMPRESSION: Essentially stable chest.
[2016-09-28] MEDS: NORCO-7.5 PO PRN ×2 (11:41→20:34)
--- NOTE | 2016-09-28 12:31 | PROGRESS NOTE ---
DATE: 09/28/2016 SUBJECTIVE: Ms. Morales has not had any chest pain overnight. Her breathing has been stable. PHYSICAL EXAMINATION: Vital signs: She is afebrile. Her heart rates appear to be in the 60s to 70s. Her blood pressure most recently is 114/63. General: She is in no acute distress. Cardiovascular: She sounds to be in a regular rate and rhythm. No obvious murmurs. She has no lower extremity edema and warm well perfused lower extremities. Chest Exam: Sounds clear bilaterally. She has poor inspiratory effort. She has somewhat decreased breath sounds diffusely. Abdomen: Soft, nontender, nondistended. She has no obvious organomegaly. Skin Exam: Warm and dry throughout without any rashes PERTINENT DATA: Her sodium her white count is 8.4, hematocrit 28.6. Her platelet count is 142,000. Her sodium is 134, potassium is 3.8. Her BUN is 35, creatinine 1.4. ASSESSMENT: 1. Anemia. 2. Non ST-elevation myocardial infarction. 3. Flash pulmonary edema. PLAN: Will tentatively plan for cardiac catheterization in the morning. I have made her NPO after midnight. We will Hemoccult her stools. Noticeably from the 5th to 8th she had a hematocrit drop of 38 to 28. No obvious acute source of bleeding has been identified but this is certainly concerning. She seems to have well controlled blood pressures at this point.
[2016-09-28] MEDS: PROTONIX IV SCH (14:06)
[2016-09-28] MEDS: SODIUM CHLORIDE 0.9% INJ SCH (14:06)
[2016-09-28] MEDS: REQUIP PO SCH (21:44)
[2016-09-28] MEDS: LIPITOR PO SCH (21:44)
[2016-09-29] MEDS: LEVAQUIN 500 MG/D5W 100 ML IV SCH ×2 (01:00→23:58)
[2016-09-29] MEDS: NITROGLYCERIN TOP SCH ×3 (03:23→13:18)
[2016-09-29] MEDS: DUONEB (A & A) INH SCH ×6 (03:52→22:30)
[2016-09-29 06:36] LABS: HEMATOCRIT 28.8 % (37.0-47.0); HEMOGLOBIN 9.4 g/dL (12.0-16.0); MCH 32.1 PG (27-31); MCHC 32.6 g/dL (33-37); MCV 98.3 FL (81-99); MPV 10.7 FL (7.4-10.4); RBC 2.93 XMIL (4.2-5.4)
[2016-09-29 06:45] LABS: INR 0.98; PROTIME 10.4 Seconds (9.2-11.7)
[2016-09-29] MEDS: ADVAIR 500/50 DISKUS INH SCH ×2 (07:24→19:30)
[2016-09-29] MEDS: NICODERM PATCH TD SCH (08:09)
[2016-09-29] MEDS: NEURONTIN PO SCH ×4 (08:09→23:25)
[2016-09-29] MEDS: ASPIRIN EC PO SCH (08:09)
[2016-09-29 08:19] LABS: CALCIUM 8.7 mg/dL (8.8-10.2); POTASSIUM 4.3 mmol/L (3.5-5.1)
[2016-09-29] MEDS: LOVENOX SUBQ SCH ×2 (08:21→20:41)
[2016-09-29] MEDS: LASIX IV SCH (08:35)
[2016-09-29] MEDS ORDERED: MUCOMYST 20% PO ONE (08:53)
[2016-09-29] MEDS ORDERED: SODIUM BICARBONATE 8.4% 150 MEQ in D5W 1,000 ML IV SCH (09:00)
[2016-09-29] MEDS: NORVASC PO SCH (09:04)
[2016-09-29] MEDS: TOPROL XL PO SCH (09:05)
[2016-09-29] MEDS ORDERED: HEPARIN 1000 UNITS/NS 1,000 ML ONE (10:40)
[2016-09-29] MEDS ORDERED: CLAVE ANES SET 100 IN 11965 ONE (11:48)
[2016-09-29] MEDS ORDERED: NS 1,000 ML ONE (11:49)
[2016-09-29] MEDS ORDERED: DEMEROL ONE (11:50)
[2016-09-29] MEDS ORDERED: VERSED ONE (11:50)
[2016-09-29] MEDS ORDERED: CLAVE TWINSITE 32 IN 11959 ONE (11:52)
[2016-09-29] MEDS ORDERED: CARDIZEM ONE (12:23)
[2016-09-29] MEDS ORDERED: LANOXIN ONE (12:23)
--- NOTE | 2016-09-29 13:04 | CARDIAC CATH REPORT ---
DATE: 09/29/2016 PROCEDURES PERFORMED: 1. Left heart catheterization. 2. Selective coronary arteriography. 3. Left ventriculography. HISTORY: This is a 75-year-old female patient of Dr. Ham, presented to the hospital with increasing dyspnea. Cardiac enzymes became positive, consistent with a non-Q- wave myocardial infarction. The patient has a history of severe occlusive arterial disease of the lower extremities as well as a single kidney. The patient was treated over the weekend to be stabilized by Dr. Esparza and Dr. Belle. Benefits, risks and complications of the cardiac catheterization were explained to her. Cardiac catheterization was recommended, and the patient agreed to proceed. In preparation for the procedure, she was given IV bicarbonate infusion and also Mucomyst. DESCRIPTION OF PROCEDURE: The patient was brought to the cardiac equipment operator/laborer in a fasting state. The right antecubital fossa was prepped and draped in a sterile fashion and anesthetized with lidocaine 1%. A 5-Ind[place]ian sheath was inserted into the right brachial artery. Using a [employer] type 1 catheter, the left coronary artery and the right coronary artery were sequentially opacified in multiple projections. A couple of doses of intraarterial nitroglycerin were given. Then the aortic valve was negotiated, and left ventricular pressure was determined. Left ventriculogram was performed in the 60 degree IRANIAN projection and 30 degree ARMENDARIZ projection by hand injection. At the end of the procedure, the patient was given 15 mg of Cardizem IV because of a sudden episode of atrial flutter. This resolved spontaneously. The sheath was removed. Hemostasis was accomplished by hand compression. The patient tolerated the procedure well. At the end of the procedure, her right radial pulse was 4+. SUMMARY OF HEMODYNAMIC FINDINGS: Central aortic pressure was 160/69, mean 100. Left ventricular pressure was 149/21. SUMMARY OF ANGIOGRAPHIC FINDINGS: 1. Right coronary artery: The right coronary artery is a large codominant vessel. Caliber is at least 3.5 mm. It shows a 20% to 30% midsection plaque. The posterior descending branch is a large vessel which is free of obstruction. Conus branch is normal. 2. Left main coronary artery: This vessel shows an ostial plaque of 25%. This is best appreciated in IRANIAN caudal projection. Left main divides into the LAD and circumflex. 3. Left anterior descending coronary artery: This vessel gives rise to a small diagonal branch and then gives rise to a large diagonal vessel. Thereafter the LAD continues down the interventricular groove and is free of any major obstruction. Perhaps a 20% to 30% plaque is noted just at the point of origin of the major diagonal branch. 4. Circumflex system: The circumflex is a codominant system. Caliber of at least 3.5 mm. It gives rise to a sinus bianca branch. Proximally it has a mild plaque. It gives rise to a large obtuse marginal system and then an AV branch which supplies small posterolateral vessels. The circumflex system is free of any major obstruction. LEFT VENTRICULOGRAM: Left ventriculogram in the 30 degree ARMENDARIZ projection and 60 degree IRANIAN projection reveals a mildly increased ejection fraction in the order of 50% with some degree of mitral regurgitation, probably 2+, although this LV gram was not meant to evaluate for mitral regurgitation. No definite significant wall motion abnormality is noted. CONCLUSIONS: 1. Mild coronary artery disease. There is an ostial left main plaque in the order of 25% which appears to be not significant. There is mild disease in the mid right coronary artery which is codominant and also the mid LAD at the origin of the major diagonal branch and also in the proximal circumflex system. No critical stenosis is identified. 2. Mild elevation of LVEDP. 3. Mildly decreased ejection fraction in the order of 50%. 4. No aortic stenosis. 5. Probably moderate degree of mitral regurgitation. RECOMMENDATIONS: From a cardiology viewpoint, the patient does not seem to require revascularization at this point in time. Consideration may be given at performing transesophageal echocardiogram to evaluate for mitral regurgitation. Aggressive coronary risk factor modification is recommended. Additional finding of this catheterization is the presence of pacemaker hardware including pacemaker generator, right atrial and right ventricular leads. [facility]
[2016-09-29] MEDS: NORCO-7.5 PO PRN ×2 (13:12→20:01)
[2016-09-29] MEDS: SODIUM CHLORIDE 0.9% INJ SCH (13:18)
[2016-09-29] MEDS: PROTONIX IV SCH (13:18)
[2016-09-29] MEDS ORDERED: MAALOX PLUS LIQUID PO PRN (14:03)
[2016-09-29] MEDS: REQUIP PO SCH (20:00)
[2016-09-29] MEDS: LIPITOR PO SCH (20:01)
[2016-09-29] MEDS: AMBIEN PO PRN (22:16)
[2016-09-30] MEDS: DUONEB (A & A) INH SCH ×6 (03:55→23:30)
[2016-09-30 06:38] LABS: CALCIUM 8.8 mg/dL (8.8-10.2); MAGNESIUM 1.8 mg/dL (1.5-2.7); POTASSIUM 4.4 mmol/L (3.5-5.1)
[2016-09-30] MEDS: ADVAIR 500/50 DISKUS INH SCH ×2 (07:21→19:21)
[2016-09-30] MEDS: NEURONTIN PO SCH ×2 (08:08→15:20)
[2016-09-30] MEDS: TOPROL XL PO SCH (08:08)
[2016-09-30] MEDS: NICODERM PATCH TD SCH (08:08)
[2016-09-30] MEDS: LASIX IV SCH (08:08)
[2016-09-30] MEDS: NORCO-7.5 PO PRN ×3 (08:08→21:52)
[2016-09-30] MEDS: ASPIRIN EC PO SCH (08:08)
[2016-09-30] MEDS: NORVASC PO SCH (08:08)
[2016-09-30] MEDS: LOVENOX SUBQ SCH ×2 (08:12→21:50)
[2016-09-30] MEDS ORDERED: HURRICAINE SPRAY (DOSE) ONE (09:20)
[2016-09-30] MEDS ORDERED: NS 1,000 ML ONE (09:21)
[2016-09-30] MEDS ORDERED: XYLOCAINE 4% TOPICAL SOLUTION ONE (09:21)
[2016-09-30] MEDS ORDERED: CLAVE ANES SET 100 IN 11965 ONE (09:21)
[2016-09-30] MEDS ORDERED: SODIUM CHLORIDE 0.9% 10 ML ONE (09:21)
[2016-09-30] MEDS ORDERED: XYLOCAINE 2% VISCOUS ONE (09:21)
[2016-09-30] MEDS ORDERED: CLAVE TWINSITE 32 IN 11959 ONE (09:21)
[2016-09-30] MEDS ORDERED: DIPRIVAN 1% ONE (10:40)
[2016-09-30] MEDS ORDERED: VERSED ONE (10:41)
--- NOTE | 2016-09-30 10:54 | ECHO REPORT ---
ORDER DATE: 09/30/2016 DESCRIPTION OF PROCEDURE: Patient was brought to the cardiac catheterization laboratory for assessing severity of mitral regurgitation. Informed consent was obtained from the patient. Intravenous access was already established. After informed consent was obtained, the patient's oropharynx was anesthetized using Cetacaine spray, lidocaine swish and swallow. Anesthesia was present. Please see detailed anesthesia records. A transesophageal probe was easily passed into the esophagus and ultrasound pictures were obtained. FINDINGS: 1. Normal left ventricular cavity size. Estimated ejection fraction of 55-60%. 2. Aortic valve leaflets are mildly sclerosed, trileaflet opening normally. Pulmonic valve was normal. Tricuspid valve was normal. Mitral valve leaflets where mildly sclerosed. 3. Pacing leads are noted in the right chamber. 4. Doppler studies revealed moderate mitral regurgitation. 5. There is no aortic stenosis or regurgitation. There is no pulmonary regurgitation. 6. There is mild tricuspid regurgitation. 7. Left atrium was normal. 8. Saline contrast study was negative for patent foramen ovale. 9. Ascending aorta has eccentric calcium. 10. Layered plaque was noted in the descending aorta. There was no obvious intracardiac mass or thrombus seen. CONCLUSIONS: 1. Normal left ventricular cavity size. Estimated ejection fraction of 55-60%. 2. There is moderate mitral regurgitation. 3. There is no pericardial effusion or obvious intracardiac mass or thrombus.
[2016-09-30] MEDS ORDERED: SODIUM CHLORIDE 0.9% 20 ML ONE (11:14)
[2016-09-30] MEDS ORDERED: XYLOCAINE-MPF 2% ONE (11:15)
[2016-09-30] MEDS ORDERED: NEO-SYNEPHRINE ONE (11:15)
[2016-09-30] MEDS ORDERED: EPHEDRINE ONE (11:15)
[2016-09-30] MEDS: PROTONIX IV SCH (13:35)
[2016-09-30] MEDS: SODIUM CHLORIDE 0.9% INJ SCH (13:35)
[2016-09-30] MEDS: REQUIP PO SCH (21:51)
[2016-09-30] MEDS: LIPITOR PO SCH (21:51)
[2016-09-30] MEDS: AMBIEN PO PRN (21:52)
[2016-10-01] MEDS ORDERED: LEVAQUIN 250 MG/D5W 50 ML IV SCH
[2016-10-01] MEDS: NEURONTIN PO SCH ×4 (01:27→23:38)
[2016-10-01] MEDS: DUONEB (A & A) INH SCH ×6 (03:30→22:54)
[2016-10-01] MEDS: NORCO-7.5 PO PRN ×4 (03:40→22:03)
[2016-10-01] MEDS: ADVAIR 500/50 DISKUS INH SCH ×2 (08:03→19:15)
[2016-10-01] MEDS: LOVENOX SUBQ SCH ×2 (08:54→21:53)
[2016-10-01] MEDS: NICODERM PATCH TD SCH (08:54)
[2016-10-01] MEDS: NORVASC PO SCH (08:54)
[2016-10-01] MEDS: TOPROL XL PO SCH (08:54)
[2016-10-01] MEDS: LASIX PO SCH (08:55)
[2016-10-01] MEDS: ASPIRIN PO SCH (08:57)
[2016-10-01] MEDS: PRINIVIL PO SCH (10:56)
[2016-10-01] MEDS ORDERED: PRILOSEC PO ONE (21:32)
[2016-10-01] MEDS: LIPITOR PO SCH (21:53)
[2016-10-01] MEDS: REQUIP PO SCH (21:53)
[2016-10-01] MEDS: AMBIEN PO PRN (21:55)
[2016-10-02] MEDS: DUONEB (A & A) INH SCH ×3 (02:54→11:29)
[2016-10-02] MEDS ORDERED: PRILOSEC PO SCH (07:00)
[2016-10-02] MEDS: ADVAIR 500/50 DISKUS INH SCH (07:26)
[2016-10-02] MEDS: LASIX PO SCH (08:35)
[2016-10-02] MEDS: NEURONTIN PO SCH (08:36)
[2016-10-02] MEDS: PRINIVIL PO SCH (08:36)
[2016-10-02] MEDS: TOPROL XL PO SCH (08:36)
[2016-10-02] MEDS: NORVASC PO SCH (08:36)
[2016-10-02] MEDS: ASPIRIN PO SCH (08:36)
[2016-10-02] MEDS: NICODERM PATCH TD SCH (08:36)
[2016-10-02 11:14] VITALS: BP 135/70
[2016-10-02] MEDS: NORCO-7.5 PO PRN (11:18)
--- NOTE | 2016-10-03 04:31 | DISCHARGE SUMMARY ---
ADMISSION DATE: 09/26/2016 DISCHARGE DATE: 10/02/2016 DISCHARGE DIAGNOSES: 1. Mild coronary artery disease. 2. Non-ST elevation myocardial infarction. 3. Acute Respiratory Failure 4. Chronic obstructive pulmonary disease. 5. Hypertension. 6. Anemia of unknown etiology. 7. Hemoccult positive stools. HOSPITAL COURSE: Ms. Morales is a 75-year-old female, who came into the hospital with progressively worsening shortness of breath, at which time she was found to have elevated troponin and was admitted to the hospital for further evaluation and care. She received IV fluids, along with subcutaneous Lovenox and cardiology was consulted, who went ahead and did a cardiac catheterization that showed mild coronary artery disease. She was recommended to have a transesophageal echocardiogram done that showed moderate mitral regurgitation. The patient's condition has been stable and has been uneventful otherwise. She does have advanced chronic obstructive pulmonary disease causing her to have respiratory failure on admission, because of which we obtained pulmonary consultation with Dr. Orozco, who was actively involved in the care of this patient during this hospital admission. The patient's respiratory condition improved over the course of time. She also had prerenal azotemia with elevated BUN and creatinine that gradually improved as well. Since patient's condition has improved. She is going to be discharged home today. DISCHARGE MEDICATIONS: 1. Aspirin 81 mg orally once daily. 2. Omeprazole 40 mg orally once daily in the morning. 3. Metoprolol ER 50 mg orally once daily. 4. Amlodipine 2.5 mg orally once daily. 5. Hydrocodone/acetaminophen 7.5 mg/325 mg orally 3 times a day as needed for pain. 6. Lisinopril 10 mg orally once daily. 7. Requip 3 mg orally once daily at bedtime. 8. Neurontin 400 mg three times a day. 9. Atorvastatin 40 mg orally once daily at bedtime. 10. Advair Diskus 500/50 one inhalation twice daily. 11. Alendronate 70 mg orally once a week, as directed. 12. Furosemide 40 mg orally once daily. 13. Imdur 30 mg half tablet orally once daily. 14. Temazepam 15 mg orally once daily at bedtime as needed for insomnia. FOLLOWUP: She will follow with me at the office in approximately 5-7 days and follow up with Dr. Esparza at the [facility] in 2-4 weeks. [facility]
== END 2016-10-02 12:20 | disposition home or self-care (01) | DRG 280 ==
LOC: EDBD → ED 21:45 → EDIPHOLD 09-26 00:53 → 3S 09-26 07:02 → ICU 09-26 17:20 → 3N 09-30 20:43
PROVIDERS: ADMIT Internal Medicine; ATTEND Internal Medicine
PROC: 4A023N7 Measurement of Cardiac Sampling and Pressure, Left Heart, Percutaneous Approach (ICD-10-PCS; principal; 2016-09-29)
PROC: B2111ZZ Fluoroscopy of Multiple Coronary Arteries using Low Osmolar Contrast (ICD-10-PCS; 2016-09-29)
PROC: B2151ZZ Fluoroscopy of Left Heart using Low Osmolar Contrast (ICD-10-PCS; 2016-09-29)
PROC: B24BZZ4 Ultrasonography of Heart with Aorta, Transesophageal (ICD-10-PCS; 2016-09-30)
DX: I21.4 Non-ST elevation (NSTEMI) myocardial infarction (principal); J96.00 Acute respiratory failure, unspecified whether with hypoxia or hypercapnia; I50.33 Acute on chronic diastolic (congestive) heart failure; J44.1 Chronic obstructive pulmonary disease with (acute) exacerbation; I13.0 Hypertensive heart and chronic kidney disease with heart failure and stage 1 through stage 4 chronic kidney disease, or unspecified chronic kidney disease; I25.10 Atherosclerotic heart disease of native coronary artery without angina pectoris; D64.9 Anemia, unspecified; R19.5 Other fecal abnormalities; I73.9 Peripheral vascular disease, unspecified; I71.4 Abdominal aortic aneurysm, without rupture; E78.5 Hyperlipidemia, unspecified; G25.81 Restless legs syndrome; K59.00 Constipation, unspecified; F17.210 Nicotine dependence, cigarettes, uncomplicated; N18.3 Chronic kidney disease, stage 3 (moderate); R73.9 Hyperglycemia, unspecified; G47.33 Obstructive sleep apnea (adult) (pediatric); I34.0 Nonrheumatic mitral (valve) insufficiency; M19.90 Unspecified osteoarthritis, unspecified site; Z95.0 Presence of cardiac pacemaker; Z85.51 Personal history of malignant neoplasm of bladder; Z90.49 Acquired absence of other specified parts of digestive tract; Z91.11 Patient's noncompliance with dietary regimen; Z79.82 Long term (current) use of aspirin; Z79.83 Long term (current) use of bisphosphonates; Z79.51 Long term (current) use of inhaled steroids; Z79.899 Other long term (current) drug therapy; Z83.3 Family history of diabetes mellitus; Z80.9 Family history of malignant neoplasm, unspecified
CPT/HCPCS: 51702; 71010; 71020; 80048; 80053; 80061; 81001; 82270; 82550; 82553; 82565; 82805; 82948; 83036; 83735; 83880; 84443; 84484; 85025; 85027; 85610; 85730; 87040; 93005; 93010; 93306; 93312; 93458; 94640; 94660; 94760; 94761; 94762; 96365; 96367; 96375; 96376; C9113; J0330; J0696; J1160; J1644; J1650; J1940; J2175; J2250; J2270; J2370; J2930; J3475; J7030; J7070; Q9967; 97116-GP; S0164

== ENCOUNTER 2016-11-17 18:13 | Inpatient (IN) | payer OTHER ==
[2016-11-17] MEDS ORDERED: NITROGLYCERIN SL PRN (18:18)
[2016-11-17] MEDS ORDERED: ASPIRIN PO STA (18:18)
[2016-11-17 18:33] LABS: ALLEN TEST YES; BE 4.3 mmoll (-3.0-3.0); BLOOD TYPE ARTERIAL; DRAW SITE L RADIAL; METHB 1.3 % (0.0-1.5); O2(CT) 13.3 mL/dL (15.0-23.0); PO2(98.6) 88 mmHg (60-100); SAMPLE BLOOD; SAO2 98.5 % (95.0-100.0); pH(98.6) 7.35 (7.35-7.45)
[2016-11-17 18:35] LABS: MODALITY NRB; PCO2(98.6) 56 mmHg (35-45)
--- NOTE | 2016-11-17 18:35 | PROVIDER DOCUMENTATION ---
HPI-Respiratory General - General Source: patient, family, EMS - History of Present Illness-Resp Quality of Pain: reports: none Severity in ED: reports: severe Onset/Duration: reports: just prior to arrival Timing: reports: still present, improving Cough Quality/Degree: reports: moderate, productive cough, sputum Episode Frequency: occasional episodes Associated Symptoms: reports: cough, shortness of breath, short of breath. denies: chest pain/soreness, dizziness, earache, facial pain, fever/chills, flu- like symptoms, headache, heart racing, hurts to breathe, hyperventilating, lightheadedness, sinus pain, sore throat, sweaty, wheezing Similar Symptoms Previously?: Yes Recently seen or treated by another doctor?: Yes (recently discharged) <Tomás Bright - Last Filed: 11/17/16 20:27> <Leesa Alonso Jr - Last Filed: 11/17/16 20:34> - General Chief Complaint: Shortness of Breath Stated Complaint: sob, 85%/6L Time Seen by Provider: 11/17/16 18:17 Allergies/Adverse Reactions: Patient Allergies Allergy/AdvReac Type Severity Reaction Status Date / Time No Known Allergies Allergy Verified 11/17/16 20:30 Home Medications: Home Medication List Medication Instructions Recorded Confirmed Last Taken Type Albuterol Sulfate Inhaler 2 puff INH Q4H PRN PRN 05/18/16 11/17/16 11/17/16 08: 00 History [Ventolin Hfa] Fluticasone/Salmeterol [Advair 1 puff INH BID 05/18/16 11/17/16 11/17/16 08:00 History 500-50 Diskus] Gabapentin 400 mg PO TID@0900,1500,2100 05/18/16 11/17/16 11/17/16 09:00 History Ropinirole HCl [Requip] 3 mg PO QHS 05/18/16 11/17/16 11/16/16 22:00 History Temazepam 15 mg PO QHS 05/18/16 11/17/16 11/16/16 22:00 History Omeprazole [Prilosec] 40 mg PO DAILY@0700 #30 capsule 10/02/16 11/17/16 07:00 Rx Apixaban [Eliquis] 2.5 mg PO BID 10/15/16 11/17/16 11/17/16 08:00 History Diltiazem C.d. [Cardizem Cd] 360 mg PO DAILY #30 capsule 10/15/16 11/17/1611/17 08:00 Rx Isosorbide Dinitrate [Isordil] 40 mg PO TID@0900,1500,2100 10/15/16 11/17/16 09:00 History Nitroglycerin Sl [Nitroglycerin] 0.4 mg SL PRN PRN 10/15/16 11/17/16 Unknown History Furosemide [Lasix] 60 mg PO DAILY #30 tablet 10/31/16 11/17/16 11/17/16 09:00 Rx Hydralazine [Apresoline] 25 mg PO TID #0 tablet 10/31/16 11/17/16 11/17/16 09: 00 Rx Potassium Chloride E.r. [Klor-Con] 20 meq PO DAILY #30 tablet 10/31/16 11/17/16 11/16/16 09:00 Rx - History of Present Illness-Resp Nature of Presenting Problem: Pt is a 76 yof who presents to ER via EMS for respiratory distress, secondary to sob. EMS reports that pt was satting at 82% on 4L O2 nasal canula, increased to 6L with 88% O2 sat nasal canula. Pt and family report that pt was discharged from [facility] last Thursday for same thing where she had been admitted for 10 days, and discharged. Family reports that pt has had bilateral lower extremity +2 pitting edema to the knees. Pt reports that she does feel a little better now and denies any pain. (Tomás Bright) Review of Systems - Adult - REVIEW OF SYSTEMS - ADULT Constitutional: denies: chills, fever, fatique, night sweats Eyes: reports: no symptoms reported Ears, Nose, Mouth & Throat: reports: no symptoms reported Cardiovascular: denies: chest pain, edema, heart murmur, irregular heart rate, orthopnea, palpitations, poor circulation, PND, syncope Respiratory: reports: chronic cough, cough, shortness of breath. denies: dyspnea on exertion, excessive sputum production, hemoptysis, pleurisy, wheezing Gastrointestinal: reports: no symptoms reported Genitourinary: reports: no symptoms reported Musculoskeletal: reports: no symptoms reported Integumentary: reports: no symptoms reported Neurological: denies: ataxia, dizziness/vertigo, headache/migraines, loss of balance, numbness, paresthesia, seizure, slurred speech, syncope, tremors Psychiatric: reports: no symptoms reported Endocrine: reports: no symptoms reported Hematologic/Lymphatic: reports: no symptoms reported Allergic/Immunologic: reports: no symptoms reported All Other Systems: Reviewed and Negative <Tomás Bright - Last Filed: 11/17/16 20:27> Past History - Adult - PAST MEDICAL HISTORY-ADULT Review of Records: reports: Nursing Assessment Review, Medications Reviewed Cardiovascular: reports: A-Fib, CHF, HTN, other (valvular heart disease) Respiratory: reports: COPD Musculoskeletal: reports: arthritis - IMMUNIZATION STATUS Childhood Immunizations: See Nurse Assessment Flu Vaccine: See Nurse Assessment <Tomás Bright Filed: 11/17/16 20:27> Physical Exam-General - PHYSICAL EXAM-ADULT Initial Vital Signs Reviewed: Yes - CONSTITUTIONAL General Appearance: appears well, alert, severe distress, thin, lethargic. negative: no apparent distress, mild distress, moderate distress, cachetic, obese, anxious, slow to respond, obtunded, combative - CARDIOVASCULAR Cardiovascular: normal peripheral pulses, tachycardia. negative: regular rate, rhythm, bradycardia, irregularly irregular - MUSCULOSKELETAL Extremity: no calf tenderness, pedal edema (+2 bilateral lower extremities, up to the knees), slow capillary refill, swelling. negative: normal range of motion, non-tender, normal gait, no pedal edema, normal capillary refill, calf tenderness, deformity, erythema, inflammation, tenderness - SKIN Integumentary: swelling (+2 pitting edema in bilateral lower extremities) - NEUROLOGIC Neurologic: grossly normal, no motor/sensory deficits. negative: facial droop, focal weakness, motor weakness, sensory deficit - PSYCHIATRIC Psych/Mental Status: normal thought content, normal thought process, oriented x 3, depressed affect <Tomás Bright Filed: 11/17/16 20:27> Progress - EKG 1 Time of EKG reading by physician:: 18:29 EKG Read and Signed by:: Leesa Alonso Jr EKG Interpretation (*Must complete 3 of following elements*): Abnormal (Cannot rule out Anterior infarct, age undetermined; ST & T wave abnormality, consider inferolateral ischemia Rhythm:Sinus rhythm with frequent ventricular-paced complexes and premature supraventricular complexes) Rate: 94 Rhythm: See interpretation - XRAY 1 XRAY: Bilateral XRAY Study: Chest Impression: See EMR Report (interstitial edema; Bilateral pleural effusion) XRAY Interpretation: See report - CONSULTS/PCP/HOSPITALIST Notification #1 *Consult/PCP/Hospitalist*: Dr. Hall (Hospitalist) Time Discussed: 20:28 Consult Disposition: Admit <Tomás Bright - Last Filed: 11/17/16 20:27> <Leesa Alonso Jr - Last Filed: 11/17/16 20:34> - PLAN OF CARE/RESULTS Progress/Plan/Lab Results: POC: IV/labs/lasix 2018: Pt will be given levoquin and be admitted. Vital Signs - 24 hr 11/17/16 11/17/16 11/17/16 18:14 18:20 18:27 Temperature 97.8 F Pulse Rate 134 H Respiratory Rate Blood Pressure 112/89 O2 Sat by Pulse 94 L 99 Oximetry 11/17/16 18:34 Temperature Pulse Rate 99 H Respiratory 16 Rate Blood Pressure 112/89 O2 Sat by Pulse 100 Oximetry Orders Category Date Time Status Cardiac Monitoring DIRECTED Care 11/17/16 18:18 Active Saline Loc NOW Care 11/17/16 18:18 Active CHEST-PORTABLE [RAD] Stat Exams 11/17/16 19:52 Taken ABG [RESP] Routine Lab 11/17/16 18:25 Completed BLOOD CULTURE [BLDCUL] Stat Lab 11/17/16 18:20 Results CBC WITH ELECTRONIC DIFF [HEME] Stat Lab 11/17/16 18:20 Completed CK PROFILE [SP CHEM] Stat Lab 11/17/16 18:20 Completed COMPREHENSIVE METABOLIC PANEL [CHEM] Stat Lab 11/17/16 18:20 Completed MAGNESIUM [CHEM] Stat Lab 11/17/16 18:20 Completed PRO B-NATRIURETIC PEPTIDE Stat Lab 11/17/16 18:20 Completed PROTIME WITH INR [COAG] Stat Lab 11/17/16 18:20 Completed PTT [COAG] Stat Lab 11/17/16 18:20 Completed TROPONIN T Stat Lab 11/17/16 18:20 Completed Aspirin Med 11/17/16 18:18 Discontinued 325 mg PO STAT STA Levofloxacin 750 mg/D5w [Levaquin 750 mg/D5w] 150 ml Med 11/17/16 20:30 Ordered IV Q24H Nitroglycerin Sl [Nitroglycerin] Med 11/17/16 18:18 Active 0.4 mg SL Q5M PRN PRN BIPAP Stat Oth 11/17/16 18:19 Active EKG [EKG] Stat Ther 11/17/16 18:18 Ordered Laboratory Tests 11/17/16 11/17/16 11/17/16 18:20 18:20 18:20 WBC 9.92 RBC 3.39 L Hgb 10.6 L Hct 31.9 L MCV 94.1 MCH 31.3 H MCHC 33.2 RDW Std Deviation 13.8 Plt Count 172 MPV 10.5 H Immature Gran % (Auto) 0.4 Neut % (Auto) 94.4 H Lymph % (Auto) 4.7 L [place] % (Auto) 0.5 L Eos % (Auto) 0.0 Baso % (Auto) 0.0 Immature Gran # (Auto) 0.04 Neut # (Auto) 9.36 H Lymph # (Auto) 0.47 L [place] # (Auto) 0.05 L Eos # (Auto) 0.00 Baso # (Auto) 0.00 PT 10.0 INR 0.94 PTT (Actin FS) 21.6 L Specimen Type Sample Site pH pCO2 pO2 HCO3 Base Excess Oxyhemoglobin ABG O2 Sat (Calculated) ABG O2 Saturation ABG Carboxyhemoglobin ABG Methemoglobin Robert Test A-a O2 Difference Total Hemoglobin Lactate Liter Flow Blood Gas Modality FiO2 % Sodium Potassium Chloride Carbon Dioxide Anion Gap BUN Creatinine Estimated GFR/1.73 m2 BUN/Creatinine Ratio Glucose Calculated Osmolality Calcium Magnesium Total Bilirubin AST ALT Alkaline Phosphatase Creatine Kinase Troponin T 0.033 Udc-N-Bymvhpbutsl Pept Total Protein Albumin Globulin Albumin/Globulin Ratio 11/17/16 11/17/16 11/17/16 18:20 18:20 18:25 WBC RBC Hgb Hct MCV MCH MCHC RDW Std Deviation Plt Count MPV Immature Gran % (Auto) Neut % (Auto) Lymph % (Auto) [place] % (Auto) Eos % (Auto) Baso % (Auto) Immature Gran # (Auto) Neut # (Auto) Lymph # (Auto) [place] # (Auto) Eos # (Auto) Baso # (Auto) PT INR PTT (Actin FS) Specimen Type ARTERIAL Sample Site L RADIAL pH 7.35 pCO2 56 H* pO2 88 HCO3 28.2 H Base Excess 4.3 H Oxyhemoglobin 93.9 L ABG O2 Sat (Calculated) 13.3 L ABG O2 Saturation 98.5 ABG Carboxyhemoglobin 3.50 H ABG Methemoglobin 1.3 Robert Test YES A-a O2 Difference 555.0 Total Hemoglobin 10.0 L Lactate 0.90 Liter Flow 15.0 Blood Gas Modality NRB FiO2 % 100.0 Sodium 128 L Potassium 5.6 H Chloride 86 L Carbon Dioxide 26 Anion Gap 16 BUN 53 H Creatinine 1.4 H Estimated GFR/1.73 m2 36 BUN/Creatinine Ratio 38 Glucose 223 H Calculated Osmolality 278 Calcium 8.8 Magnesium 2.0 Total Bilirubin 0.27 AST 46 H ALT 63 H Alkaline Phosphatase 103 Creatine Kinase 98 Troponin T [place] 53464 H Total Protein 6.0 L Albumin 3.4 L Globulin 2.6 Albumin/Globulin Ratio 1.3 (Tomás Bright) Departure - Departure Time of Disposition Order: 20:28 Certified Medical Emergency: Emergent <Tomás Bright - Last Filed: 11/17/16 20:27> - Departure Time of Disposition Order: 20:34 <Leesa Alonso Jr - Last Filed: 11/17/16 20:34> - Departure DIAGNOSIS: COPD exacerbation, Hypoxemia requiring supplemental oxygen CHF (congestive heart failure) Qualifiers: Congestive heart failure type: unspecified congestive heart failure type Congestive heart failure chronicity: acute on chronic Qualified Code(s): I50.9 - Heart failure, unspecified Disposition: ADMITTED INPATIENT 09 Condition: Fair Referrals: Rebecca Ham MD [Primary Care Provider] - Attestation - Scribe Verification/Attestation Scribe:: Tomás Bright Acting as Scribe for:: Leesa Alonso Jr Scribe documention review:: This chart was documented by a scribe and accurately reflects the service the provider performed and the decisions made by the provider. <Tomás Bright - Last Filed: 11/17/16 20:27> Physician Attestation
[2016-11-17 19:03] LABS: INR 0.94; PTT 21.6 Seconds (22.0-36.0)
[2016-11-17 19:04] LABS: HEMATOCRIT 31.9 % (37.0-47.0); HEMOGLOBIN 10.6 g/dL (12.0-16.0); IMM GRAN# 0.04 X1000 (0.0-0.04); IMM GRAN% 0.4 % (0.0-0.5); LYMPH# 0.47 X1000 (1.2-3.4); LYMPH% 4.7 % (20.5-51.1); MANUAL DIFF NEEDED? NO; MCH 31.3 PG (27-31); MCHC 33.2 g/dL (33-37); MCV 94.1 FL (81-99); MONO# 0.05 X1000 (0.11-0.59); MONO% 0.5 % (1.7-9.3); MPV 10.5 FL (7.4-10.4); NEUT% 94.4 % (42.2-75.2); PLT 172 X1000 (130-400); RBC 3.39 XMIL (4.2-5.4)
[2016-11-17 19:37] LABS: ALBUMIN 3.4 g/dL (3.5-5.0); CALCIUM 8.8 mg/dL (8.8-10.2); POTASSIUM 5.6 mmol/L (3.5-5.1); TOTAL BILIRUBIN 0.27 mg/dL (0.20-1.00)
[2016-11-17] MEDS ORDERED: LEVAQUIN 750 MG/D5W 150 ML IV SCH (20:30)
[2016-11-17] MEDS ORDERED: NS 1,000 ML IV ONE (20:50)
[2016-11-17 21:12] LABS: URINE CULTURE NEEDED? NO; URINE MICRO REVIEW NEEDED? NO; URINE SOURCE CLEAN CATCH
[2016-11-17 21:16] LABS: BILIRUBIN URINE NEGATIVE (NEGATIVE); BLOOD URINE NEGATIVE (NEGATIVE); COLOR YELLOW; GLUCOSE URINE NEGATIVE (NEGATIVE); LEUKOCYTES URINE NEGATIVE (NEGATIVE); NITRITE URINE NEGATIVE (NEGATIVE); PROTEIN URINE 200 mg/dL (NEGATIVE); SP GRAVITY URINE 1.011; TURBIDITY URINE CLEAR (CLEAR); UROBILINOGEN URINE NORMAL (NORMAL)
[2016-11-17 21:18] LABS: UR EPITHELIAL CELLS <10 /HPF (<10); URINE BACTERIA NEGATIVE /HPF; URINE RBC <10 /HPF (<10); URINE WBC <10 /HPF (<10)
[2016-11-17 21:47] LABS: HEMOGLOBIN A1C 5.1 % (4.8-6.0)
[2016-11-17] MEDS ORDERED: LASIX IV ONE (21:53)
[2016-11-17 22:08] LABS: URINE CULTURE NEEDED? NO; URINE MICRO REVIEW NEEDED? NO; URINE SOURCE CATH
[2016-11-17] MEDS ORDERED: MORPHINE IV PRN (22:16)
[2016-11-17 22:21] LABS: BILIRUBIN URINE NEGATIVE (NEGATIVE); BLOOD URINE NEGATIVE (NEGATIVE); COLOR YELLOW; GLUCOSE URINE NEGATIVE (NEGATIVE); LEUKOCYTES URINE NEGATIVE (NEGATIVE); NITRITE URINE NEGATIVE (NEGATIVE); PH URINE 5.5; PROTEIN URINE 200 mg/dL (NEGATIVE); SP GRAVITY URINE 1.011; TURBIDITY URINE CLEAR (CLEAR); UROBILINOGEN URINE NORMAL (NORMAL)
[2016-11-17 22:22] LABS: UR EPITHELIAL CELLS <10 /HPF (<10); URINE BACTERIA NEGATIVE /HPF; URINE RBC <10 /HPF (<10); URINE WBC <10 /HPF (<10)
[2016-11-17] MEDS: DOXYCYCLINE PO SCH (22:45)
[2016-11-17] MEDS: ROCEPHIN 1 GM/NS 50 ML IV SCH (23:00)
[2016-11-18 00:06] LABS: HEMATOCRIT 26.6 % (37.0-47.0); HEMOGLOBIN 8.7 g/dL (12.0-16.0); LYMPH# 0.51 X1000 (1.2-3.4); LYMPH% 6.6 % (20.5-51.1); MANUAL DIFF NEEDED? NO; MCH 30.9 PG (27-31); MCHC 32.7 g/dL (33-37); MCV 94.3 FL (81-99); MONO# 0.27 X1000 (0.11-0.59); MONO% 3.5 % (1.7-9.3); MPV 9.8 FL (7.4-10.4); NEUT% 89.9 % (42.2-75.2); PLT 108 X1000 (130-400); RBC 2.82 XMIL (4.2-5.4)
[2016-11-18 00:39] LABS: ALBUMIN 2.9 g/dL (3.5-5.0); CALCIUM 8.3 mg/dL (8.8-10.2); POTASSIUM 4.8 mmol/L (3.5-5.1)
[2016-11-18] MEDS: REQUIP PO SCH ×2 (02:00→20:35)
[2016-11-18] MEDS: RESTORIL PO SCH ×2 (02:00→20:35)
[2016-11-18 04:39] LABS: ALLEN TEST YES; BE 6.4 mmoll (-3.0-3.0); BLOOD TYPE ARTERIAL; DRAW SITE R RADIAL; METHB 1.4 % (0.0-1.5); O2(CT) 11.8 mL/dL (15.0-23.0); PO2(98.6) 133 mmHg (60-100); SAMPLE BLOOD; SAO2 99.9 % (95.0-100.0); SRATE 10 BPM; THB 8.4 g/dL (11.5-17.4); pH(98.6) 7.38 (7.35-7.45)
[2016-11-18 04:42] LABS: MODALITY BI PAP; PCO2(98.6) 55 mmHg (35-45)
--- NOTE | 2016-11-18 05:43 | EKG Report ---
Test Performed on : 11/17/2016 6:29:55 PM Test Reason : Chest Pain Blood Pressure : / mmHG Vent. Rate : 094 BPM Atrial Rate : 094 BPM P-R Int : 208 ms QRS Dur : 090 ms QT Int : 340 ms P-R-T Axes : 000 062 -84 degrees QTc Int : 425 ms Sinus rhythm. with frequent ventricular-paced complexes and premature supraventricular complexes. Cannot rule out Anterior infarct , age undetermined ST & T wave abnormality, consider inferolateral ischemia Abnormal ECG When compared with ECG of 29-OCT-2016 19:13, Electronic ventricular pacemaker has replaced Sinus rhythm. Unconfirmed Result
[2016-11-18] MEDS: PRILOSEC PO SCH (06:12)
[2016-11-18 06:38] LABS: IRON SATURATION 32 %; TIBC 217 ug/dL; TOTAL IRON 69 ug/dL (49-151); UNBOUND IRON 148 ug/dL (112-346)
[2016-11-18 06:42] LABS: ALBUMIN 2.8 g/dL (3.5-5.0); CALCIUM 8.4 mg/dL (8.8-10.2); POTASSIUM 4.4 mmol/L (3.5-5.1)
[2016-11-18 06:55] LABS: FERRITIN 271 ng/mL (13-150)
--- NOTE | 2016-11-18 07:37 | EKG Report ---
Test Performed on : 11/18/2016 06:49:14 AM Test Reason : CHF,Elevated Troponin Blood Pressure : / mmHG Vent. Rate : 135 BPM Atrial Rate : 135 BPM P-R Int : 168 ms QRS Dur : 100 ms QT Int : 298 ms P-R-T Axes : 000 050 -84 degrees QTc Int : 447 ms Sinus tachycardia. Nonspecific ST and T wave abnormality Abnormal ECG When compared with ECG of 17-NOV-2016 18:29, (Unconfirmed) Sinus rhythm. has replaced Electronic ventricular pacemaker Confirmed by Cory Hassan MD ([id number]) on 11/18/2016 9:52:28 PM
[2016-11-18] MEDS: DUONEB (A & A) INH PRN ×3 (07:51→18:00)
--- NOTE | 2016-11-18 08:14 | Diag Imaging Result Document ---
PROCEDURE NAME: CHEST-PORTABLE - 11/17/2016 PORTABLE CHEST: COMPARISON: 10/31/2016. FINDINGS: The lungs are well expanded. The patient has a left-sided pacemaker. The heart is not enlarged. There are small bilateral pleural effusions. There are increased interstitial markings in the mid and lower lungs. These are more pronounced than on the prior exam. IMPRESSION: Worsening pulmonary edema and/or infiltrates.
[2016-11-18] MEDS: ZOLOFT PO SCH (08:29)
[2016-11-18] MEDS: NEURONTIN PO SCH ×2 (08:29→20:35)
[2016-11-18] MEDS: DOXYCYCLINE PO SCH ×2 (08:29→20:39)
[2016-11-18] MEDS: LIPITOR PO SCH (08:29)
[2016-11-18] MEDS: ELIQUIS PO SCH ×2 (08:30→20:35)
[2016-11-18] MEDS: LASIX IV SCH ×2 (08:30→20:31)
[2016-11-18] MEDS: CARDIZEM CD PO SCH (08:30)
[2016-11-18] MEDS ORDERED: LOPRESSOR PO SCH (09:00)
--- NOTE | 2016-11-18 09:29 | HISTORY AND PHYSICAL ---
PRIMARY CARE PROVIDER: Dr. Ham. TIME: 2199. CHIEF COMPLAINT: Shortness of breath and edema. HISTORY OF PRESENT ILLNESS: Ms. Morales is a 76-year-old female who was last admitted on 10/28/2016, for hyponatremia, congestive heart failure, and pneumonia. She was discharged on 10/31/2016. She was discharged home to continue Levaquin 500 mg p.o. daily for 7 days. The patient reports that since her discharge she has not been able to ambulate due to bilateral lower extremity swelling. She reports that approximately 3 days ago she began having shortness of breath that steadily continued to worsen over the past few days and tonight she became distressed and presented to the ER with an initial O2 saturation of 85%. After being placed on BiPAP, the patient's respiratory status has improved at this time. She does still report a productive cough with white foamy sputum. She denies any chest pain. She denies any fever, body aches, or chills. She also denies any headache, dizziness, abdominal pain, nausea, vomiting, or diarrhea. She reports her last bowel movement was yesterday, was of a normal color, and she denies any bloody or black stools. She denies any dysuria, though does report reduced urinary output. The patient reports that over the past 2 to 3 days she has also noticed increased edema, for which she has in bilateral arms, sacrum and groin area, as well as bilateral lower extremities. The patient did also have distended neck veins upon arrival to the ER. Chest x-ray does show what appears to be bibasilar infiltrates and/or effusions with increased pulmonary vascular congestion. She also has a proBNP of 31,860. Creatinine at this time is 1.4 with a GFR of 36, which is a slight reduction from her baseline. Her D-dimer was also elevated at 2.01. The patient denies any previous history of DVT or pulmonary embolism, though does take Eliquis 2.5 mg p.o. b.i.d. for her history of a left external iliac stent and femoral popliteal bypass. At this time, we will admit the patient for further treatment of her congestive heart failure, pneumonia, chronic kidney disease, and elevated D-dimer. REVIEW OF SYSTEMS: A 14-point review of systems was conducted with the patient and all were negative, except for pertinent positives mentioned in the above HPI. PAST MEDICAL HISTORY: 1. Diastolic heart failure. 2. COPD. 3. Peripheral artery disease with severe bilateral lower extremity disease. 4. Abdominal aortic aneurysm. 5. Hypertension. 6. Hyperlipidemia. 7. Sleep apnea with CPAP used at night. 8. Restless leg syndrome. 9. Coronary artery disease. 10.History of transitional cell carcinoma of the bladder. 11.Right renal atrophy with a history of right renal artery occlusion. 12.Left-sided renal artery stenosis. 13.Anemia of unknown etiology. PAST SURGICAL HISTORY: 1. Previous left external iliac stent placement. 2. Femoral popliteal bypass. 3. Hysterectomy. 4. Pacemaker placement x2. 5. Bladder tumor resection of transitional cell cancer. 6. Partial colon resection. 7. Appendectomy. SOCIAL HISTORY: The patient has smoked for quite some time, though at this time has reduced her usage to 3 cigarettes per day and does report that she is still actively trying to quit smoking. No known alcohol or illicit drug use. She lives with family. FAMILY HISTORY: Positive for diabetes mellitus type 2, mesothelioma in a 1st degree relative. ALLERGIES: No known drug allergies. HOME MEDICATIONS: 1. Lipitor 40 mg p.o. daily. 2. Ferrous gluconate 324 mg p.o. daily. 3. Lasix 40 mg p.o. daily. 4. Norvasc 2.5 mg p.o. daily. 5. Metoprolol 50 mg p.o. daily. 6. Prednisone 20 mg p.o. as directed. 7. Zoloft 50 mg p.o. daily. 8. Temazepam 15 mg p.o. nightly. 9. Requip 3 mg p.o. nightly. 10.Potassium chloride extended release 20 mEq p.o. daily. 11.Prilosec 40 mg p.o. daily. 12.Nitroglycerin 0.4 mg sublingual p.r.n.. 13.Isordil 40 mg p.o. t.i.d. 14.Hydralazine 25 mg p.o. t.i.d. 15.Gabapentin 400 mg p.o. t.i.d. 16.Lasix 60 mg p.o. daily. 17.Advair 500/50 Diskus 1 puff inhaled b.i.d.. 18.Cardizem controlled dose 360 mg p.o. daily. 19.Eliquis 2.5 mg p.o. b.i.d. 20.Ventolin HFA inhaler 2 puffs inhaled q.4 h p.r.n. DIAGNOSTIC DATA: Laboratory results: White blood cell 9.9, hemoglobin 10.6, hematocrit 31.9, platelet count 172, PT 10.0, INR 0.94, PTT 21.6, D-dimer 2.01, sodium 128, potassium 5.6, chloride 86, bicarb 26, BUN 53, creatinine 1.4, GFR 36, glucose 223, hemoglobin A1c 5.1, serum osmolality 281, calcium 8.8, magnesium 2, total bilirubin 0.27, AST 46, ALT 63, alkaline phosphatase 103, CK 98, troponin 0.033, proBNP 31,860, albumin 3.4. Arterial blood gases were obtained on room air: pH 7.35, PCO2 is 56, PO2 is 88, HCO3 is 28.2, with a base excess of 4.3 and an O2 saturation of 98.5. These were obtained on a nonrebreather at 100% FIO2. Urinalysis was positive for protein that was otherwise within normal limits. A chest x-ray showed possible bibasilar infiltrates and/or effusions. Compared to the patient's most recent chest x-ray, this does appear to have worsened. We are awaiting official over-read. EKG showed sinus rhythm with frequent ventricular paced complexes and premature supraventricular complexes with an ST and T wave abnormality. Rate was 94. QTC was 425. PHYSICAL EXAMINATION: VITAL SIGNS: Temperature 98.2, heart rate 88, respirations 22, blood pressure 102/76, oxygen saturation 100% on BiPAP. GENERAL: Ms. Morales is a pleasant, frail, elderly, 76-year-old female who is resting in the ER stretcher. At this time she appears to be in no acute distress. She is awake, alert, and able to answer all questions appropriately. HEENT: Head is atraumatic, normocephalic. Pupils are equal, round, and reactive to light with 3 mm bilaterally and brisk. Subconjunctivae are slightly pale. Oral mucosa is moist. Oropharynx is clear. NECK: Supple. Trachea midline. There is significant JVD noted upon examination. No carotid bruit noted upon auscultation bilaterally. CARDIAC: The patient has S1, S2. No obvious murmurs, gallops, or rubs appreciated. PULMONARY: The patient has symmetrical chest expansion bilaterally. Lungs sounds in bilateral full gipson are diminished and she does have expiratory wheezing noted as well. ABDOMEN: Soft, nontender, nondistended. Bowel sounds are present in all 4 quadrants. EXTREMITIES: The patient has 4+ pitting edema noted in bilateral lower extremities from approximately midcalf down. She has 2+ noted from midcalf to knee. The patient also does have edema noted in the sacral and groin areas. This was reported by ER staff upon a Loving placement. She has 2+ pitting edema noted in her posterior dependent portions of her bilateral upper arms. Bilateral pedal pulses are very diminished, though the patient did have a capillary refill less than 3. Bilateral radial pulses are 2+. INTEGUMENT: The patient's skin is pink, warm, dry, and intact. NEUROLOGIC: The patient is alert and oriented to person, place, time, and situation. Cranial nerves II through XII are grossly intact. ASSESSMENT AND PLAN: 1. Congestive heart failure exacerbation. For this, we will place the patient on a Lasix 40 mg IV every 12. The patient is on BiPAP at this time and is tolerating this well. Her respiratory status has greatly improved. We have placed a consult with cardiology and await their evaluation and further recommendations. At this time, the patient's blood pressure is low at 102/76. We will continue to monitor this closely, though at this time, have held her blood pressure medicines secondary to this. A Loving catheter has been placed for strict intake and output monitoring. 2. Pneumonia. The patient was discharged with Levaquin p.o. I have given this. We will place her on Rocephin 1 g IV q.24 h, as well as doxycycline 100 mg p.o. b.i.d. A blood culture as well as sputum culture has been obtained and we will continue to follow. 3. COPD. We will continue with BiPAP at this time, as well as will do q.4-6 h albuterol Atrovent treatments as needed. 4. Acute on chronic kidney disease. The patient has had an increase in her creatinine from 1.1 to 1.4, and her GFR is reduced from 48 to 36. We will continue to monitor this closely. We will avoid nephrotoxic medications and renally dose medicines as necessary. 5. Hypotonic hypervolemic hyponatremia. This is likely secondary to her congestive heart failure. We will continue with the above treatment for CHF and we will continue to monitor this closely with routine and chemistry labs. 6. Anemia of uncertain etiology. It does not appear that the patient has previously had anemia profile performed. We have placed an order for this and will await this result, and continue to follow and treat as necessary. 7. Elevated D-dimer. Due to the patient's renal function, we have ordered a VQ lung scan for in the morning, as well as bilateral lower extremity venous Dopplers to rule out DVT or PE. We will await these results. Continue to follow. 8. Hypertension. As previously mentioned, the patient's blood pressure is slightly low at this time. At 102/76 we have, at this present time, held her blood pressure medicines. 9. Hyperlipidemia. We will continue with the patient's Lipitor. The patient placed on medical floor with Telemetry. She will have vital signs q.4. We will do daily weights, strict intake and output. DVT prophylaxis is currently provided with previously prescribed Eliquis 2.5 mg p.o. b.i.d. Other orders and recommendations pending hospital course, diagnostic studies, and physician evaluation. Dictated by BLU Canales for Alex Hall MD
[2016-11-18] MEDS ORDERED: SAMSCA PO ONE (11:07)
--- NOTE | 2016-11-18 11:32 | CONSULTATION ---
DATE OF CONSULTATION: 11/18/2016 INDICATION FOR CONSULTATION: Pulmonary edema. HISTORY OF PRESENT ILLNESS: Ms. Morales is a 76-year-old, white female who has had frequent admissions over the last couple of months. Most of these have been secondary to flash pulmonary edema. During her last evaluation, she was found to have severe aortoiliac disease with an occluded right renal artery and a severely diseased left renal artery. We consulted Dr. Carrero to evaluate the patient and he recommended evaluation by vascular surgeons at a tertiary care facility. She since then has followed up with Dr. Lezama who deemed her not an appropriate surgical candidate. More recently, she has been an inpatient at [facility] as well as our facility over the last couple of months. She thinks over the course of October, she has been at home for just a few days or so. She apparently got discharged from [facility] around 3 days ago and last night was sitting on the couch and became more acutely short of breath. She does not think that she had any sodium indiscretion in her diet. She has been adherent to her medications. She presented and was found on chest x-ray to have worsening pulmonary edema and/or infiltrates. Her electrocardiogram demonstrated what appeared to be atrial flutter on the initial EKG. Heart rate was in the 90s to 130s and her initial blood pressure on presentation was 112/89. PAST MEDICAL HISTORY: 1. Significant for severe COPD. 2. Peripheral vascular disease. 3. Sick sinus syndrome, status post [facility] permanent pacemaker implantation. 4. Coronary artery disease with last cardiac catheterization in September of 2016. At that time, she had a right coronary with 20-30% mid vessel disease. The left main had an ostial 25%. The left anterior descending had a 20-30% plaque at the origin of the prominent diagonal branch. Circumflex vessel did not have any significant disease. She last had an echocardiogram performed on November 01 over in [facility] that demonstrated an EF in the range of 50-55 with no evidence of significant valvular disease. 5. Tobacco abuse with severe COPD. 6. Severe peripheral vascular disease as detailed above in the HPI. 7. Obstructive sleep apnea. SOCIAL HISTORY: She continues to smoke. No alcohol or illicit drug use. FAMILY HISTORY: Significant for type 2 diabetes. REVIEW OF SYSTEMS: A 10 system review of systems was negative except for those things mentioned in the HPI. PHYSICAL EXAMINATION: Vital Signs: During this hospitalization, she has been afebrile. Heart rate 98, blood pressure 136/93. She weighs 114 pounds. Generally: She is in no acute distress. Currently BiPAP is in place. HEENT: Oropharynx is moist. She has poor dentition. Eye examination shows pink conjunctivae and white sclerae. Neck: Examination shows no obvious thyromegaly or thyroid tenderness. Cardiovascular: She is in a regular rate and rhythm right now. She does not seem to be tachycardic presently. Extremities: She has 1 to 2+ bilateral lower extremity edema. She has warm and well perfused lower extremities. Chest: Examination has decreased breath sounds diffusely, some mild end-expiratory wheezes. She has a prolonged expiratory phase. Again, BiPAP is currently in place. Abdomen: Soft, nontender, nondistended. No obvious organomegaly. Skin Examination: Warm and dry throughout. Neurological: She is moving all extremities well. She is nonfocal. Psychiatric: She is alert, oriented, and pleasant. She has normal mood and affect. PERTINENT DATA: Her initial EKG at 1828 yesterday shows atrial flutter, rate of 94 beats per minute. She has variable conduction, occasional ventricular paced beats were noted. Her subsequent EKG on the at 6:49 it is difficult to interpret. This could be atrial flutter versus sinus tachycardia. Rate of 135 beats per minute is noted on this study. Her chest x-ray demonstrates worsening pulmonary edema and/or infiltrates. Her laboratory data demonstrates a white count of 7.7, hematocrit 26, platelet count of 108,000. Her ABG had a pH of 7.38, pCO2 of 55, PO2 of 133. Sodium was 130, potassium was 4.4, BUN 55, creatinine was 1.3. Her albumin level was 2.8. B12 was 1086. ProBNP was 31,860. ASSESSMENT: 1. Flash pulmonary edema. 2. Anemia. 3. Severe peripheral vascular disease. 4. Severe chronic obstructive pulmonary disease. PLAN: Patient thus far has been deemed a nonoperative candidate from a vascular standpoint. I believe she will likely have repetitive hospitalizations for this issue, given that she is not able to be intervened on. We will try to continue to adjust her diuretics. We will consider giving her some albumin, considering her albumin is less than 3 presently. That may assist us in mobilization of some of the free fluid that she has in her lower extremities. Thus far, preliminary reads on her ultrasound of her lower extremities would suggest she has no clot. A V/Q scan is currently pending. Patient certainly would be a candidate for palliative/hospice type measures. We will need to have this kind of a discussion with the family as well as the primary team.
--- NOTE | 2016-11-18 11:44 | CONSULTATION ---
DATE OF CONSULTATION: 11/18/2016 REFERRING PHYSICIAN: Dr. Khan. CHIEF COMPLAINT: Cough and shortness of breath. HISTORY OF PRESENT ILLNESS: This is a 76-year-old female with a past medical history of diastolic heart failure, COPD, peripheral artery disease, AAA, hypertension, hyperlipidemia, sleep apnea, restless legs syndrome, coronary artery disease that presented to the emergency room with complaints of shortness of breath and cough. She states she was recently discharged from [facility] for the same symptoms for a 10 day admission. Apparently, her oxygen saturation was low prior to her arrival, in the low 80s and then had improved to the high 80s upon arrival. Diagnostics in the ER revealed worsening pulmonary edema with plus or minus infiltrates in both lungs. She has been admitted to the floor for further evaluation, management, and treatment. REVIEW OF SYSTEMS: A 10-point review of systems was conducted. Pertinents are noted in the HPI, otherwise noncontributory. PAST MEDICAL HISTORY: As mentioned in the HPI, otherwise, noncontributory. 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 SOCIAL HISTORY: The patient is a current smoker of approximately 1 pack per day of cigarettes. Denies use of alcohol or illicit drugs. Lives with family. FAMILY HISTORY: Notable for diabetes and mesothelioma. ALLERGIES: No known drug allergies. ACTIVE MEDICATIONS: Tylenol, DuoNeb, Eliquis, Lipitor, Rocephin, Cardizem, doxycycline, Lasix, Neurontin, Solu-Medrol, morphine, nitroglycerin, Prilosec, Zofran, Requip, Zoloft, Restoril. PHYSICAL EXAMINATION: Vital Signs: Temperature 97.9, heart rate 98, respiratory rate 10, blood pressure 136/93, oxygen saturation 100%. General: This is a 76-year-old, obese female, in no acute distress. HEENT: Normocephalic and atraumatic. PERRL. Cardiovascular: Regular rate and rhythm. Chest: Reduced entry. Abdomen: Soft. Bowel sounds present. Extremities: There is 2+ pedal edema noted. Neurologic: Alert and oriented. LABS/INVESTIGATIONS: WBCs 7.76, RBCs 2.82, hemoglobin 8.7, hematocrit 26.6, platelet count 108,000. Sodium 130, potassium 4.4, chloride 90, CO2 28, anion gap 12, BUN 55, creatinine 1.3, glucose 97. Blood cultures pending. Chest x-ray shows worsening pulmonary edema and/or infiltrates. ASSESSMENT AND PLAN: This is a 76-year-old female with a past medical history as mentioned in the history of present illness that presented to the hospital with complaints of cough and shortness of breath. She has been admitted to the floor for her known congestive heart failure, chronic obstructive pulmonary disease exacerbation, and hypoxic respiratory failure. Continue inhaled bronchodilators, broad-spectrum antibiotics, intravenous steroids. Gastrointestinal and deep venous thrombosis prophylaxis. Further recommendations pending diagnostic studies. Thank you for the courtesy of this consult. Dictated by BLU Camarena for Aliza Baron MD
[2016-11-18] MEDS: SOLU-MEDROL IV SCH ×2 (12:17→17:17)
[2016-11-18] MEDS: ISORDIL PO SCH ×2 (12:21→17:18)
[2016-11-18] MEDS: MORPHINE IV PRN ×2 (15:51→20:45)
--- NOTE | 2016-11-18 16:01 | Diag Imaging Result Document ---
PROCEDURE NAME: LUNG SCAN / VQ - 11/18/2016 LUNG VENTILATION AND PERFUSION SCAN: FINDINGS: Ventilation images performed using 30 millicuries technetium-99m DTPA aerosol inhaled. Perfusion images performed using 5 millicurie technetium-99m MAA administered intravenously. Ventilation and perfusion images are obtained in multiple projections over the lung gipson. Ventilation is very heterogeneous. There are grossly matching ventilation and perfusion defects at the bilateral apices. This likely relates to emphysema, and there were substantial emphysematous changes seen on the 10/27/2016 CT angiogram pulmonary arteries. There is no discrete ventilation-perfusion mismatch (area which is ventilated, but not perfused) identified. IMPRESSION: 1. Substantially heterogeneous ventilation. Grossly matching ventilation-perfusion defects at bilateral apices. These findings likely relate to emphysema. 2. No ventilation-perfusion mismatch identified. Exam is felt to be low probability for pulmonary embolism.
[2016-11-18] MEDS: ROCEPHIN 1 GM/NS 50 ML IV SCH (23:58)
[2016-11-19] MEDS: SOLU-MEDROL IV SCH ×6 (01:01→17:38)
[2016-11-19] MEDS: MORPHINE IV PRN ×3 (04:56→21:05)
[2016-11-19 05:05] LABS: ALLEN TEST YES; BE 8.1 mmoll (-3.0-3.0); BLOOD TYPE ARTERIAL; DRAW SITE R RADIAL; METHB 1.6 % (0.0-1.5); O2(CT) 11.9 mL/dL (15.0-23.0); PCO2(98.6) 52 mmHg (35-45); PO2(98.6) 58 mmHg (60-100); SAMPLE BLOOD; SAO2 92.7 % (95.0-100.0); THB 9.4 g/dL (11.5-17.4); pH(98.6) 7.42 (7.35-7.45)
[2016-11-19 05:06] LABS: MODALITY CANNULA
[2016-11-19 06:28] LABS: HEMATOCRIT 27.7 % (37.0-47.0); HEMOGLOBIN 9.1 g/dL (12.0-16.0); LYMPH% 3.3 % (20.5-51.1); MANUAL DIFF NEEDED? YES; MCH 30.7 PG (27-31); MCHC 32.9 g/dL (33-37); MCV 93.6 FL (81-99); MONO# 0.02 X1000 (0.11-0.59); MONO% 0.3 % (1.7-9.3); MPV 10.6 FL (7.4-10.4); NEUT% 96.4 % (42.2-75.2); PLT 122 X1000 (130-400); RBC 2.96 XMIL (4.2-5.4)
[2016-11-19] MEDS: PRILOSEC PO SCH (06:41)
[2016-11-19 06:51] LABS: BANDS 8 % (0-1); LYMPHS 4 % (21-51)
[2016-11-19 07:00] LABS: CALCIUM 8.8 mg/dL (8.8-10.2); POTASSIUM 4.9 mmol/L (3.5-5.1)
[2016-11-19] MEDS: DUONEB (A & A) INH PRN ×2 (07:42→15:03)
--- NOTE | 2016-11-19 07:55 | Diag Imaging Result Document ---
PROCEDURE NAME: CHEST-1 VIEW - 11/19/2016 AP PORTABLE CHEST AT 0500 HOURS: FINDINGS: There are bilateral pleural effusions. There is COPD. There are ill-defined opacities throughout both lower lung gipson. This does not appear to have changed significantly since 11/17/2016. IMPRESSION: Pulmonary edema and pleural effusions. COPD.
[2016-11-19] MEDS: LIPITOR PO SCH (08:21)
[2016-11-19] MEDS: ZOLOFT PO SCH (08:21)
[2016-11-19] MEDS: NEURONTIN PO SCH ×2 (08:21→20:59)
[2016-11-19] MEDS: ELIQUIS PO SCH ×2 (08:22→20:59)
[2016-11-19] MEDS: LASIX IV SCH ×2 (08:22→21:00)
[2016-11-19] MEDS: ISORDIL PO SCH ×3 (08:22→17:04)
[2016-11-19] MEDS: CARDIZEM CD PO SCH (08:22)
[2016-11-19] MEDS: DOXYCYCLINE PO SCH ×2 (08:23→21:01)
--- NOTE | 2016-11-19 09:10 | Extremity Venous Study ---
PROCEDURE NAME: Venous U/S Bilateral Legs - 11/18/2016 STUDY: Bilateral lower extremity venous duplex and color flow imaging study using a [employer] Vivid E9 Ultrasound System with a 9-LD transducer. REFERRING PHYSICIAN: Fernando Belle MD AGE/SEX: A 76-year-old female. ROOM NUMBER: [id number] PARTS EXPEDITER: Yun Guzman RVT INDICATIONS: 1. Swelling of the limb. ICD 10 M79.89. 2. Elevated D-dimer. ICD 10 R94.2. FINDINGS: Right common femoral vein and its branches, deep and superficial femoral veins were satisfactorily imaged. They had flow through them and were compressible. Right popliteal vein and the deep veins below the right knee were all compressible and had flow through them. The superficial veins of the right lower extremity were compressible throughout their length. The left common femoral vein and its branches, deep and superficial femoral veins were also satisfactorily imaged. They had flow through them and were compressible. Left popliteal vein and the deep veins below the left knee were all compressible and had flow through them. The superficial veins of the left lower extremity were compressible throughout their length. There was some fluid in the posterior popliteal space, right lower extremity, consistent with Ayon's cyst. INTERPRETATION: No evidence of acute deep or superficial venous thrombosis of the bilateral lower extremities.
[2016-11-19] MEDS ORDERED: SAMSCA PO ONE (14:45)
--- NOTE | 2016-11-19 15:38 | PROGRESS NOTE ---
DATE: 11/19/2016 SUBJECTIVE: Ms. Morales is doing well. She says she reports less edema and her breathing is improved. She is off BiPAP presently. PHYSICAL EXAMINATION: Vital signs: She is afebrile. Heart rate of 83. Blood pressure 127/89. Input and output: Appear to be negative, around 2949-6844 mL. Generally: No acute distress. Cardiovascular: She is in a regular rate and rhythm. She has no obvious murmurs. No S3. She has 1+ bilateral lower extremity edema up to around the mid coronel. Warm and well perfused lower extremities. Chest: Has decreased breath sounds with a prolonged expiratory phase and some mild rales in the bilateral bases. No increased work of breathing. Abdomen: Soft, nontender, nondistended. PERTINENT DATA: White count 6.1, hematocrit 27.7, platelet count 122,000. Sodium is 130, potassium 4.9, BUN 16, creatinine 1.5. ASSESSMENT: Acute diastolic heart failure in a patient with severe peripheral vascular disease involving renal artery. PLAN: I have discussed the case with Dr. Carrero. He would recommend consideration for referral to Dr. Wesley at [facility]. She has already been turned down by Dr. Lezama for vascular surgery in [place]. She will continue to diurese presently. I have ordered another dose of Samsca. Her vital signs appear to be stable to allow increase of her nitroglycerin. I believe if the patient does have a vascular intervention to that renal artery, we will likely have repetitive hospitalizations for this in the future. If she is not a surgical candidate, then certainly she would be a candidate for palliative measures considering her multiple hospitalizations over the last couple of months. I believe she is on hospitalization #4 at this point.
[2016-11-19] MEDS: ROCEPHIN 1 GM/NS 50 ML IV SCH ×2 (20:58→22:16)
[2016-11-19] MEDS: REQUIP PO SCH (20:59)
[2016-11-19] MEDS: RESTORIL PO SCH (20:59)
[2016-11-20] MEDS: SOLU-MEDROL IV SCH ×6 (01:25→23:59)
[2016-11-20] MEDS: PRILOSEC PO SCH (06:30)
[2016-11-20 06:45] LABS: POTASSIUM 4.3 mmol/L (3.5-5.1)
[2016-11-20 06:46] LABS: HEMATOCRIT 27.4 % (37.0-47.0); HEMOGLOBIN 9.1 g/dL (12.0-16.0); IMM GRAN# 0.02 X1000 (0.0-0.04); IMM GRAN% 0.3 % (0.0-0.5); LYMPH# 0.11 X1000 (1.2-3.4); LYMPH% 1.7 % (20.5-51.1); MANUAL DIFF NEEDED? YES; MCHC 33.2 g/dL (33-37); MCV 93.2 FL (81-99); MONO% 1.5 % (1.7-9.3); NEUT% 96.5 % (42.2-75.2); PLT 121 X1000 (130-400); RBC 2.94 XMIL (4.2-5.4)
[2016-11-20 07:16] LABS: BANDS 8 % (0-1); LYMPHS 2 % (21-51); MONO 2 % (1-9)
[2016-11-20] MEDS: DUONEB (A & A) INH PRN ×4 (07:40→23:21)
[2016-11-20] MEDS: LASIX IV SCH ×2 (09:01→23:08)
[2016-11-20] MEDS: LIPITOR PO SCH (09:02)
[2016-11-20] MEDS: NEURONTIN PO SCH ×2 (09:02→23:08)
[2016-11-20] MEDS: ISORDIL PO SCH ×3 (09:02→16:16)
[2016-11-20] MEDS: ZOLOFT PO SCH (09:02)
[2016-11-20] MEDS: ELIQUIS PO SCH ×2 (09:02→23:10)
[2016-11-20] MEDS: CARDIZEM CD PO SCH (09:03)
[2016-11-20] MEDS: DOXYCYCLINE PO SCH ×2 (09:04→23:10)
[2016-11-20] MEDS: MORPHINE IV PRN ×2 (12:20→23:15)
--- NOTE | 2016-11-20 12:36 | Diag Imaging Result Document ---
PROCEDURE NAME: CHEST-PORTABLE - 11/20/2016 PORTABLE CHEST: COMPARISON: Compared to 11/19/2016. FINDINGS: The patient has a left-sided pacemaker. The heart is not enlarged. There are increased interstitial markings in the mid and lower lungs with small bilateral pleural effusions. The apices remain clear. IMPRESSION: No interval improvement in the pleural effusions and pulmonary edema.
--- NOTE | 2016-11-20 14:54 | PROGRESS NOTE ---
DATE: 11/20/2016 SUBJECTIVE: Ms. Morales is doing well. Presently, she has no symptoms of heart racing. At the time of my examination, her heart rate was in the 110s to 130s. She did have some palpitations earlier in the morning. PHYSICAL EXAMINATION: Vital signs: Afebrile. Heart rate 148, blood pressure 109/88. Her Input and output: -1792 over the last 24. Generally: She is in no acute distress. Cardiovascular: She is in an irregularly irregular rhythm. Her telemetry is consistent with atrial flutter with variable conduction. Chest: She has no audible wheezing. Abdomen: Soft, nontender, nondistended. No obvious organomegaly. PERTINENT DATA: White count 6.4, hematocrit 27.4, platelet count is 121,000. Her sodium is 136, potassium 4.3, BUN 64, creatinine 1.5, her proBNP is 23,529 which is down from 31,860. ASSESSMENT: 1. Atrial flutter with rapid ventricular response. 2. Severe chronic obstructive pulmonary disease. 3. Severe and possibly inoperable peripheral arterial disease. PLAN: We will continue with diuresis. I will add in metoprolol 12.5 q.6 hours. Her chest x-ray today continues to show pulmonary edema.
[2016-11-20] MEDS: LOPRESSOR PO SCH ×2 (16:16→23:08)
[2016-11-20] MEDS: REQUIP PO SCH (23:08)
[2016-11-20] MEDS: ROCEPHIN 1 GM/NS 50 ML IV SCH (23:10)
[2016-11-20] MEDS: RESTORIL PO SCH (23:14)
[2016-11-21] MEDS: LOPRESSOR PO SCH ×4 (03:26→20:53)
[2016-11-21] MEDS: DUONEB (A & A) INH PRN ×6 (03:53→23:49)
[2016-11-21] MEDS: SOLU-MEDROL IV SCH ×4 (06:05→23:49)
[2016-11-21] MEDS: PRILOSEC PO SCH (06:05)
[2016-11-21 06:19] LABS: CALCIUM 8.8 mg/dL (8.8-10.2); POTASSIUM 4.2 mmol/L (3.5-5.1)
[2016-11-21 06:35] LABS: HEMOGLOBIN 8.8 g/dL (12.0-16.0); IMM GRAN# 0.02 X1000 (0.0-0.04); IMM GRAN% 0.3 % (0.0-0.5); LYMPH# 0.11 X1000 (1.2-3.4); LYMPH% 1.5 % (20.5-51.1); MANUAL DIFF NEEDED? YES; MCH 30.7 PG (27-31); MCHC 32.6 g/dL (33-37); MCV 94.1 FL (81-99); MONO# 0.07 X1000 (0.11-0.59); MPV 11.1 FL (7.4-10.4); NEUT% 97.2 % (42.2-75.2); PLT 114 X1000 (130-400); RBC 2.87 XMIL (4.2-5.4)
[2016-11-21 06:40] LABS: LYMPHS 3 % (21-51); MONO 1 % (1-9)
[2016-11-21] MEDS: ZOLOFT PO SCH (08:58)
[2016-11-21] MEDS: ISORDIL PO SCH ×3 (08:59→16:22)
[2016-11-21] MEDS: ELIQUIS PO SCH ×2 (08:59→20:53)
[2016-11-21] MEDS: NEURONTIN PO SCH ×2 (09:00→20:53)
[2016-11-21] MEDS: LASIX IV SCH (09:00)
[2016-11-21] MEDS: LIPITOR PO SCH (09:04)
[2016-11-21] MEDS: DOXYCYCLINE PO SCH ×2 (09:05→20:53)
[2016-11-21] MEDS: CARDIZEM CD PO SCH (09:05)
[2016-11-21] MEDS: TYLENOL PO PRN ×2 (12:01→20:59)
--- NOTE | 2016-11-21 16:08 | PROGRESS NOTE ---
DATE: 11/21/2016 SUBJECTIVE: Ms. Morales reports she is short of breath roughly equivalent to what she was yesterday. She has had no heart racing. She is tolerating oral intake. PHYSICAL EXAMINATION: Vital signs: She is afebrile. Her heart rate during my examination was in the 80s. She has had heart rates anywhere from the 80s to 140s today. Her I's and O's continue to be negative over the hospitalization. Generally: No acute distress. Cardiovascular: She is in an irregularly irregular rate controlled rhythm. She has 1+ lower extremity edema and warm and well perfused lower extremities. Chest: Has a prolonged expiratory phase with somewhat reduced breath sounds heard throughout all lung gipson. Abdomen: Soft, nontender. No obvious organomegaly. Skin Exam: Warm and dry throughout. PERTINENT DATA: Sodium 137 ,potassium 4.2, BUN 71, creatinine 1.6. Her CBC shows a white count of 7.2, hematocrit 27, platelet count 114,000. ASSESSMENT: 1. Diastolic heart failure. 2. Atrial fibrillation. 3. Severe advanced chronic obstructive pulmonary disease. 4. Severe advanced peripheral arterial disease. PLAN: Patient seems like she is on intravascularly dry side. I will check a CMP in the morning. She may benefit from albumin. I will hold her diuretics for now. Her chest x-ray yesterday suggested continued issues with effusions. We will continue with blood pressure control. She seems to have reasonable rate control of her atrial fibrillation presently and is on Eliquis at 2.5 b.i.d. She is amenable to potential reevaluation for vascular surgery as an outpatient and we have been recommended Dr. Wesley at [facility]. It would be reasonable to send her down there as an outpatient for another opinion but I think that she would be a high surgical risk patient given her comorbidities and need for a fairly high risk surgery.
[2016-11-21] MEDS: REQUIP PO SCH (20:53)
[2016-11-21] MEDS: RESTORIL PO SCH (20:53)
[2016-11-21] MEDS: ROCEPHIN 1 GM/NS 50 ML IV SCH (23:49)
[2016-11-22] MEDS: DUONEB (A & A) INH PRN ×5 (02:46→23:18)
[2016-11-22] MEDS: LOPRESSOR PO SCH ×4 (04:21→22:26)
[2016-11-22] MEDS: PRILOSEC PO SCH ×2 (05:56→07:30)
[2016-11-22] MEDS: SOLU-MEDROL IV SCH ×3 (05:56→22:28)
[2016-11-22 06:32] LABS: ALBUMIN 3.1 g/dL (3.5-5.0); CALCIUM 8.9 mg/dL (8.8-10.2); POTASSIUM 4.5 mmol/L (3.5-5.1); TOTAL BILIRUBIN 0.24 mg/dL (0.20-1.00); TOTAL PROTEIN 5.4 g/dL (6.3-8.3)
[2016-11-22] MEDS: DOXYCYCLINE PO SCH ×2 (09:00→22:28)
[2016-11-22] MEDS: ZOLOFT PO SCH (09:00)
[2016-11-22] MEDS: CARDIZEM CD PO SCH (09:15)
[2016-11-22] MEDS: NEURONTIN PO SCH ×2 (09:57→22:27)
[2016-11-22] MEDS: LIPITOR PO SCH (09:57)
[2016-11-22] MEDS: ELIQUIS PO SCH ×2 (09:58→22:27)
[2016-11-22] MEDS: ISORDIL PO SCH ×3 (09:59→16:21)
[2016-11-22] MEDS: MORPHINE IV PRN ×2 (10:01→22:28)
[2016-11-22] MEDS: REQUIP PO SCH (22:26)
[2016-11-22] MEDS: RESTORIL PO SCH (22:27)
[2016-11-22] MEDS: ROCEPHIN 1 GM/NS 50 ML IV SCH (22:28)
[2016-11-23] MEDS: LOPRESSOR PO SCH ×5 (03:43→21:34)
[2016-11-23] MEDS: DUONEB (A & A) INH PRN ×5 (04:37→19:13)
[2016-11-23] MEDS: SOLU-MEDROL IV SCH ×3 (06:16→21:32)
[2016-11-23] MEDS: PRILOSEC PO SCH (06:16)
[2016-11-23] MEDS: ZOLOFT PO SCH ×2 (08:53→09:16)
[2016-11-23] MEDS: LIPITOR PO SCH ×2 (08:53→09:16)
[2016-11-23] MEDS: ISORDIL PO SCH ×4 (08:53→16:46)
[2016-11-23] MEDS: NEURONTIN PO SCH ×3 (08:54→21:34)
[2016-11-23] MEDS: ELIQUIS PO SCH ×3 (08:54→21:33)
[2016-11-23] MEDS: CARDIZEM CD PO SCH ×2 (08:55→09:15)
[2016-11-23] MEDS: DOXYCYCLINE PO SCH ×3 (08:55→21:33)
[2016-11-23] MEDS: ZOFRAN IV PRN (14:21)
[2016-11-23] MEDS: TYLENOL PO PRN (14:21)
[2016-11-23] MEDS: REQUIP PO SCH (21:32)
[2016-11-23] MEDS: RESTORIL PO SCH (21:32)
[2016-11-23] MEDS: ROCEPHIN 1 GM/NS 50 ML IV SCH (21:32)
[2016-11-24] MEDS: DUONEB (A & A) INH PRN ×6 (03:54→23:02)
[2016-11-24] MEDS: LOPRESSOR PO SCH ×4 (05:37→18:01)
[2016-11-24] MEDS: ROCEPHIN 1 GM/NS 50 ML IV SCH ×2 (05:37→23:14)
[2016-11-24] MEDS: PRILOSEC PO SCH (06:33)
[2016-11-24] MEDS: SOLU-MEDROL IV SCH ×3 (06:33→21:52)
[2016-11-24] MEDS: ZOFRAN IV PRN (09:09)
[2016-11-24] MEDS: DOXYCYCLINE PO SCH ×2 (09:49→21:53)
[2016-11-24] MEDS: ISORDIL PO SCH ×3 (09:49→18:01)
[2016-11-24] MEDS: ZOLOFT PO SCH (09:50)
[2016-11-24] MEDS: ELIQUIS PO SCH ×2 (09:50→21:51)
[2016-11-24] MEDS: LIPITOR PO SCH (09:50)
[2016-11-24] MEDS: NEURONTIN PO SCH ×2 (09:50→21:50)
[2016-11-24] MEDS: CARDIZEM CD PO SCH (09:51)
--- NOTE | 2016-11-24 13:16 | PROGRESS NOTE ---
DATE: 11/24/2016 SUBJECTIVE: Ms. Morales is quite somnolent. She is on BiPAP. I had an at length discussion with the family. They have decided to proceed with a palliative approach. PHYSICAL EXAMINATION: Vital signs: She is afebrile. Heart rate of 133, blood pressure 135/91. General: No acute distress. Cardiovascular: She is in a tachycardic and irregular rhythm. She has no obvious murmurs. She has no S3. She has 1+ lower extremity edema. Chest: Has mild expiatory wheezes bilaterally. No increased work of breathing. Abdomen: Soft, nontender. PERTINENT DATA: She has no new laboratory data since the 4th. ASSESSMENT: 1. End-stage chronic obstructive pulmonary disease. 2. Severe peripheral vascular disease. 3. Atrial fibrillation. PLAN: I will titrate her metoprolol slightly to 25 q.6. Likely plan for the patient to proceed with hospice. I agree with this as from a vascular standpoint as well as an atrial fibrillation standpoint we do not have a lot of options.
--- NOTE | 2016-11-24 19:20 | PALLIATIVE CARE CONSULTATION ---
DATE: 11/24/2016 REQUESTING PHYSICIAN: Rebecca Ham M.D. REASON FOR CONSULTATION: Goals of care. HISTORY OF PRESENT ILLNESS: This is a 76-year-old female with a past medical history of severe COPD, severe peripheral vascular disease, sick sinus syndrome, coronary artery disease, obstructive sleep apnea, hypertension, hyperlipidemia, AAA, and congestive heart failure. She was most recently admitted on to 11/18/2016 after presenting to the emergency department with complaints of sudden-onset shortness of breath. It was reported that her initial O2 saturation was 85%. At that time she was placed on BiPAP. This admission took place just 3 days after being discharged from a previous admission. She has had multiple admissions within the last several months for flash pulmonary edema. The family is at the bedside and reports that since August Ms. Morales has had an overall decline quite frankly. The patient's daughter states that in July 2016, she was able to take care of all of her activities of daily living and even able to drive at that time. It was reported that she used home O2 but not continuously. The family states that August was her first of several inpatient hospitalizations and she has declined since then. Currently she is lying in the hospital bed. She is requiring BiPAP. She does not appear to have any significant respiratory distress. Ms. Morales states that she is tired and she is ready to go home. The Palliative Care team has been consulted to assist with goals of care. REVIEW OF SYSTEMS: Twelve point review of systems has been conducted and otherwise negative except as mentioned in the HPI. PAST MEDICAL HISTORY: See HPI. PAST SURGICAL HISTORY: 1. Femoral-popliteal bypass. 2. Left external iliac stent placement. 3. Hysterectomy. 4. Pacemaker placement x2. 5. Partial colon resection. 6. Appendectomy. 7. Bladder surgery secondary to cancer. PAST SOCIAL HISTORY: She is a smoker. Alcohol and drug use have been denied. Prior to this admission she lived with her son and [id number]. FAMILY HISTORY: Positive for mesothelioma and diabetes mellitus type 2. PHYSICAL EXAMINATION: General: This is an elderly frail, 76-year-old, female who is lying in the hospital bed with BiPAP in place but does not appear to be in any significant respiratory distress. HEENT: Atraumatic, normocephalic. Mucous membranes are dry. Neck: Trachea is midline. Cardiovascular: Increased rate. Irregular rhythm. Pulmonary: Lung sounds are diminished. Respirations are nonlabored. Abdomen: Soft. Bowel sounds are active. Extremities: Pulses are palpable. IMPRESSION: This is a 76-year-old female with a past medical history as listed above in the HPI. The Palliative Care team was consulted to assist with goals of care. The patient's family states that other physicians have suggested hospice services and they are agreeable to home hospice services. Questions were answered regarding home hospice services and the discharge process. The patient states that she is agreeable to go home with hospice services as she states that she is tired and wants to be home with her family. She is a DNR level 1. It appears that her palliative performance scale is 20%. The Palliative Care team will continue to follow daily until discharge. Thank you for this consultation. Dictated by BLU Cedneo for Rafael Orozco MD
[2016-11-24] MEDS: REQUIP PO SCH (21:49)
[2016-11-24] MEDS: RESTORIL PO SCH (21:50)
[2016-11-25] MEDS: LOPRESSOR PO SCH ×4 (01:47→18:44)
[2016-11-25] MEDS: MORPHINE IV PRN ×4 (02:25→20:33)
[2016-11-25] MEDS: DUONEB (A & A) INH PRN ×3 (03:28→10:53)
[2016-11-25] MEDS: SOLU-MEDROL IV SCH ×3 (05:55→22:43)
[2016-11-25] MEDS: PRILOSEC PO SCH ×2 (05:55→06:12)
--- NOTE | 2016-11-25 07:50 | DISCHARGE SUMMARY ---
ADMISSION DATE: 11/18/2016 DISCHARGE DATE: 11/26/2016 DISCHARGE DIAGNOSES: 1. Acute on chronic respiratory failure secondary to end-stage chronic obstructive pulmonary disease. 2. Acute on chronic diastolic congestive heart failure. 3. Coronary artery disease. 4. Peripheral artery disease. 5. Acute on chronic kidney disease. 6. Malnourishment. HOSPITAL COURSE: Ms. Morales was a 76-year-old, female who had been repeatedly admitted recently for respiratory failure and congestive heart failure. She was also diagnosed as having pneumonia recently. She was admitted after she was found to have hypoxemic respiratory failure secondary to end-stage COPD. She also had acute on chronic diastolic congestive heart failure. She was treated with IV furosemide aggressively, along with giving her inhaled bronchodilators and IV steroids. Cardiology and pulmonary medicine were involved in the care of this patient during this hospital admission. It should be noted that she recently had a cardiac catheterization that showed only mild coronary artery disease but did have diastolic congestive heart failure. She was given pulmonary support via BiPAP and was also given IV antibiotics including ceftriaxone and doxycycline. Her condition failed to improve and because of her end-stage COPD , it was decided that only palliative care should be provided. This was discussed in detail with the patient's family including her son and daughter. Palliative care team here at the hospital was consulted who agreed with it and, therefore, we consulted hospice to provide comfort care at home. Her condition further deteriorated however on 11/25/2016 and therefore discharge was withheld. She at 4:43 AM today (11/26/2016) at the hospital. Resuscitation was not provided as per patient wishes. CAUSE OF : End-stage chronic obstructive pulmonary disease with respiratory failure and hypoxemia. TIME SPENT: A total of more than 40 minutes with spent during the discharge process. [facility] CAN[facility]ER CENTERDorene
--- NOTE | 2016-11-25 07:50 | Diag Imaging Result Document ---
PROCEDURE NAME: CHEST-1 VIEW - 11/25/2016 SINGLE FRONTAL RADIOGRAPH OF THE CHEST: COMPARISON: 11/20/2016. FINDINGS: Bilateral small pleural effusions are essentially stable. Increased interstitial markings are essentially stable indicating edema. There is evidence of pulmonary venous congestion that is stable. No new consolidation is identified. Cardiac silhouette is stable. IMPRESSION: Stable chest.
[2016-11-25] MEDS: LIPITOR PO SCH (09:49)
[2016-11-25] MEDS: ZOLOFT PO SCH (09:49)
[2016-11-25] MEDS: ISORDIL PO SCH ×3 (09:49→18:44)
[2016-11-25] MEDS: ELIQUIS PO SCH ×2 (09:49→20:16)
[2016-11-25] MEDS: NEURONTIN PO SCH ×2 (09:49→20:17)
[2016-11-25] MEDS: DOXYCYCLINE PO SCH ×2 (09:50→20:16)
[2016-11-25] MEDS: CARDIZEM CD PO SCH (09:51)
--- NOTE | 2016-11-25 12:25 | PALLIATIVE CARE PROGRESS NOTE ---
DATE: 11/25/2016 SUBJECTIVE: Ms. Morales seems less responsive today, however she is comfortable. OBJECTIVE: General: This is an elderly, frail, 76-year-old female, who is lying in the hospital bed with BiPAP in place but does not appear to be in any significant respiratory distress. HEENT: Atraumatic, normocephalic. Neck: Trachea is midline. Cardiovascular: Increased rate. Irregular rhythm. Pulmonary: Lung sounds are diminished. Respirations are nonlabored. Abdomen: Soft. Extremities: Pulses are palpable. She does have slight mottling noted to bilateral hands. ASSESSMENT AND PLAN: Our plan is to discharge today with home hospice services. The family is at the bedside and have questions regarding those services. All questions were answered. As mentioned above, Ms. Morales looks comfortable at this time. The palliative care team will be available as needed. Dictated by BLU Cedeno for Rafael Orozco MD
[2016-11-25] MEDS: REQUIP PO SCH (20:17)
[2016-11-25] MEDS: RESTORIL PO SCH (20:18)
[2016-11-25] MEDS: ROCEPHIN 1 GM/NS 50 ML IV SCH (22:44)
[2016-11-26] MEDS: MORPHINE IV PRN (00:54)
[2016-11-26] MEDS: LOPRESSOR PO SCH ×2 (03:34→06:15)
[2016-11-26 04:02] VITALS: BP 82/58
[2016-11-26] MEDS: SOLU-MEDROL IV SCH (06:15)
[2016-11-26] MEDS: PRILOSEC PO SCH (06:16)
== END 2016-11-26 04:44 | disposition expired | DRG 291 ==
LOC: EDBD → ED 18:13 → 4N 11-18 02:17
PROVIDERS: ADMIT Internal Medicine; ATTEND Internal Medicine
DX: I13.0 Hypertensive heart and chronic kidney disease with heart failure and stage 1 through stage 4 chronic kidney disease, or unspecified chronic kidney disease (principal); I50.33 Acute on chronic diastolic (congestive) heart failure; J96.21 Acute and chronic respiratory failure with hypoxia; J18.9 Pneumonia, unspecified organism; E46 Unspecified protein-calorie malnutrition; I48.92 Unspecified atrial flutter; D64.9 Anemia, unspecified; I48.91 Unspecified atrial fibrillation; J44.0 Chronic obstructive pulmonary disease with (acute) lower respiratory infection; E87.1 Hypo-osmolality and hyponatremia; J44.1 Chronic obstructive pulmonary disease with (acute) exacerbation; I73.9 Peripheral vascular disease, unspecified; N18.9 Chronic kidney disease, unspecified; R79.1 Abnormal coagulation profile; E78.5 Hyperlipidemia, unspecified; I71.4 Abdominal aortic aneurysm, without rupture; G25.81 Restless legs syndrome; I25.10 Atherosclerotic heart disease of native coronary artery without angina pectoris; F17.210 Nicotine dependence, cigarettes, uncomplicated; G47.33 Obstructive sleep apnea (adult) (pediatric); Z66 Do not resuscitate; Z68.20 Body mass index [BMI] 20.0-20.9, adult; Z79.01 Long term (current) use of anticoagulants; Z95.0 Presence of cardiac pacemaker; Z85.51 Personal history of malignant neoplasm of bladder; Z90.49 Acquired absence of other specified parts of digestive tract; Z83.3 Family history of diabetes mellitus; Z80.9 Family history of malignant neoplasm, unspecified; Z79.899 Other long term (current) drug therapy; Z79.52 Long term (current) use of systemic steroids; Z79.51 Long term (current) use of inhaled steroids
CPT/HCPCS: 51702; 71010; 78582; 80048; 80053; 80069; 81001; 82550; 82607; 82728; 82746; 82805; 82948; 83036; 83540; 83550; 83735; 83880; 83930; 84295; 84484; 85025; 85379; 85610; 85730; 87040; 87070; 87205; 93005; 93010; 93970; 94640; 94660; 94760; 94761; 94799; 96365; 96366; 96367; 96375; A9539; A9540; J0696; J1940; J2270; J2405; J2920; J2930; J7030